=== PATIENT | female | born 1985 | race Caucasian/White ===

== ENCOUNTER 2016-10-05 10:16 | Emergency (ER) | payer MEDICAID ==
[~2016-10-05 10:16] MED LIST: ALBU17AE23 IH; AZIT-21 PO; CPH500CIP PO; CYCL10TA9 PO; ERYT-99; FAMO20TA42 PO; HYDR-34 PO; HYDR-3583 PO; HYDR-690 PO; HYDR1TAB PO; HYOS0.1283 SL; IBP800T PO; LEVA1.2511; LEVO100T4; LVT.1T; LVT.1T PO; MECL-124 PO; METR250T PO; METR500T21 PO; NAPR-243 PO; PHEN200T27 PO; PRM25T PO; RNT150T PO; TYLENOL; XOPENEX
--- OUTSIDE RECORDS SUMMARY | 2016-10-09 04:52 | XMS REPORT | Continuity of Care Document ---
Author Author [facility] Organization [facility] Address Unknown Phone Unavailable Allergies Active Description Code Type Severity Reaction Onset Reported/Identified Relationship to Patient Clinical Status Yes Penicillins [id number] Drug Allergy Unknown N/A 04/14/2006 Yes Sulfa (Sulfonamide Antibiotics) [id number] Drug Allergy Unknown N/A 04/14/2006 Yes morphine [id number] Drug Allergy Moderate SOA, HIVES 07/27/2011 Medications Problems Date Dx Coded Attending Type Code Diagnosis Diagnosed By 11/29/2006 Ot 704.8 HAIR DISEASES NEC 11/29/2006 Ot 782.1 12/25/2010 Ot 625.9 FEM GENITAL SYMPTOMS NOS 12/25/2010 Ot 788.1 DYSURIA 05/16/2011 Ot 535.50 UNSP GASTRITIS GASTRODUODENITIS W/O ME 05/16/2011 Ot 789.00 ABDOMINAL PAIN, UNSPECIFIED SITE 07/27/2011 Ot 789.09 ABDOMINAL PAIN, OTHER SPECIFIED SITE 07/27/2011 Ot 791.9 ABN URINE FINDINGS NEC 10/07/2011 Ot 535.50 UNSP GASTRITIS GASTRODUODENITIS W/O ME 10/07/2011 Ot 789.06 ABDOMINAL PAIN, EPIGASTRIC 08/20/2012 Ot 530.81 ESOPHAGEAL REFLUX 08/20/2012 Ot 535.50 UNSP GASTRITIS GASTRODUODENITIS W/O ME 08/20/2012 Ot 789.06 ABDOMINAL PAIN, EPIGASTRIC 12/15/2015 SANDRINE IZAGUIRRE, DARIAN Treviño Ot F12.10 CANNABIS ABUSE, UNCOMPLICATED 12/15/2015 SANDRINE IZAGUIRRE, DARIAN Treviño Ot F15.10 OTHER STIMULANT ABUSE, UNCOMPLICATED 12/15/2015 SANDRINE IZAGUIRRE, DARIAN Treviño Ot F22 DELUSIONAL DISORDERS 02/26/2016 Ot 704.8 02/26/2016 Ot 782.1 02/26/2016 Ot 530.81 ESOPHAGEAL REFLUX 02/26/2016 Ot 535.50 UNSP GASTRITIS GASTRODUODENITIS W/O ME 02/26/2016 Ot 789.06 ABDOMINAL PAIN, EPIGASTRIC 03/31/2016 Ot 530.81 ESOPHAGEAL REFLUX 03/31/2016 Ot 535.50 UNSP GASTRITIS GASTRODUODENITIS W/O ME 03/31/2016 Ot 789.06 ABDOMINAL PAIN, EPIGASTRIC 04/05/2016 PATT CHERY MD Ot E16.2 HYPOGLYCEMIA, UNSPECIFIED 04/05/2016 PATT CHERY MD Ot E86.0 DEHYDRATION 04/05/2016 PATT CHERY MD Ot F12.10 CANNABIS ABUSE, UNCOMPLICATED 04/05/2016 PATT CHERY MD Ot F15.10 OTHER STIMULANT ABUSE, UNCOMPLICATED 04/05/2016 PATT CHERY MD Ot F17.210 NICOTINE DEPENDENCE, CIGARETTES, UNCOMPL 04/05/2016 PATT CHERY MD Ot N72 INFLAMMATORY DISEASE OF CERVIX UTERI 04/06/2016 PATT CHERY MD Ot E16.2 HYPOGLYCEMIA, UNSPECIFIED 04/06/2016 PATT CHERY MD Ot E86.0 DEHYDRATION 04/06/2016 PATT CHERY MD Ot F12.10 CANNABIS ABUSE, UNCOMPLICATED 04/06/2016 PATT CHERY MD Ot F15.10 OTHER STIMULANT ABUSE, UNCOMPLICATED 04/06/2016 PATT CHERY MD Ot F17.210 NICOTINE DEPENDENCE, CIGARETTES, UNCOMPL 04/06/2016 PATT CHERY MD Ot N72 INFLAMMATORY DISEASE OF CERVIX UTERI 06/10/2016 PATT CHERY MD Ot F17.210 NICOTINE DEPENDENCE, CIGARETTES, UNCOMPL 06/10/2016 PATT CHERY MD Ot S39.91XA UNSPECIFIED INJURY OF ABDOMEN, INITIAL E 06/10/2016 PATT CHERY MD Ot W10.9XXA FALL (ON) (FROM) UNSPECIFIED STAIRS AND 06/10/2016 PATT CHERY MD Ot Y92.[address] OR NOT APPLICABLE 06/10/2016 PATT CHERY MD Ot Y93.9 ACTIVITY, UNSPECIFIED 06/10/2016 PATT CHERY MD Ot Y99.8 OTHER EXTERNAL CAUSE STATUS 06/10/2016 PATT CHERY MD Ot Z53.21 PROC/TRTMT NOT CRD OUT D/T PT LV BEF SEE 06/10/2016 PATT CHERY MD Ot Z59.0 HOMELESSNESS 06/13/2016 PATT CHERY MD Ot F17.210 NICOTINE DEPENDENCE, CIGARETTES, UNCOMPL 06/13/2016 PATT CHERY MD Ot S39.91XA UNSPECIFIED INJURY OF ABDOMEN, INITIAL E 06/13/2016 PATT CHERY MD Ot W10.9XXA FALL (ON) (FROM) UNSPECIFIED STAIRS AND 06/13/2016 PATT CHERY MD Ot Y92.[address] OR NOT APPLICABLE 06/13/2016 PATT CHERY MD Ot Y93.9 ACTIVITY, UNSPECIFIED 06/13/2016 PATT CHERY MD Ot Y99.8 OTHER EXTERNAL CAUSE STATUS 06/13/2016 PATT CHERY MD Ot Z53.21 PROC/TRTMT NOT CRD OUT D/T PT LV BEF SEE 06/13/2016 PATT CHERY MD Ot Z59.0 HOMELESSNESS 07/15/2016 BRETT DO, TONY K Ot F15.10 OTHER STIMULANT ABUSE, UNCOMPLICATED 07/15/2016 BRETT DO, TONY K Ot F17.210 NICOTINE DEPENDENCE, CIGARETTES, UNCOMPL 07/15/2016 BRETT DO, TONY K Ot F22 DELUSIONAL DISORDERS 07/15/2016 BRETT DO, TONY K Ot R10.84 GENERALIZED ABDOMINAL PAIN 07/15/2016 BRETT , TONY K Ot F15.10 OTHER STIMULANT ABUSE, UNCOMPLICATED 07/15/2016 BRETT DO, TONY K Ot F17.210 NICOTINE DEPENDENCE, CIGARETTES, UNCOMPL 07/15/2016 BRETT DO, TONY K Ot F22 DELUSIONAL DISORDERS 07/15/2016 BRETT DO, TONY K Ot R10.84 GENERALIZED ABDOMINAL PAIN 07/17/2016 BRETT DO, TONY K Ot F15.10 OTHER STIMULANT ABUSE, UNCOMPLICATED 07/17/2016 BRETT DO, TONY K Ot F17.210 NICOTINE DEPENDENCE, CIGARETTES, UNCOMPL 07/17/2016 BRETT DO, TONY K Ot F22 DELUSIONAL DISORDERS 07/17/2016 BRETT DO TONY K Ot R10.84 GENERALIZED ABDOMINAL PAIN Procedures Results Test Result Range Complete urinalysis with reflex to culture - 04/04/16 03:50 Urine color determination YELLOW NRG Urine clarity determination CLEAR NRG Urine pH measurement by test strip 5 5- 9 Specific gravity of urine by test strip 1.030 1.016-1.022 Urine protein assay by test strip, semi-quantitative 1+ NEGATIVE Urine glucose detection by automated test strip NEGATIVE NEGATIVE Erythrocytes detection in urine sediment by light microscopy NEGATIVE NEGATIVE Urine ketones detection by automated test strip 3+ NEGATIVE Urine nitrite detection by test strip NEGATIVE NEGATIVE Urine total bilirubin detection by test strip NEGATIVE NEGATIVE Urine urobilinogen measurement by automated test strip (mass/volume) 1 mg/dL NORMAL Urine leukocyte esterase detection by dipstick NEGATIVE NEGATIVE Automated urine sediment erythrocyte count by microscopy (number/high power field) NONE NRG Automated urine sediment leukocyte count by microscopy (number/high power field ) NONE NRG Bacteria detection in urine sediment by light microscopy TRACE NRG Squamous epithelial cells detection in urine sediment by light microscopy 5-10 NRG Crystals detection in urine sediment by light microscopy NONE NRG Casts detection in urine sediment by light microscopy NONE NRG Mucus detection in urine sediment by light microscopy MODERATE NRG Complete urinalysis with reflex to culture NO NRG Urine drug screening test - 04/04/16 03:50 Urine phencyclidine detection by screening method NEGATIVE NEGATIVE Urine benzodiazepines detection by screening method NEGATIVE NEGATIVE Urine cocaine detection NEGATIVE NEGATIVE Urine amphetamines detection by screening method POSITIVE NEGATIVE Urine methamphetamine detection by screening method POSITIVE NEGATIVE Urine cannabinoids detection by screening method POSITIVE NEGATIVE Urine opiates detection by screening method NEGATIVE NEGATIVE Urine barbiturates detection NEGATIVE NEGATIVE Screening urine tricyclic antidepressants detection NEGATIVE NEGATIVE Urine methadone detection by screening method NEGATIVE NEGATIVE Urine oxycodone detection NEGATIVE NEGATIVE Urine propoxyphene detection NEGATIVE NEGATIVE Urine buprenophrine screen NEGATIVE NEGATIVE Complete blood count (CBC) with automated white blood cell (WBC) differential - 04/04/16 23:01 Blood leukocytes automated count (number/volume) 7.1 10*3/ uL 4.3-11.0 Blood erythrocytes automated count (number/volume) 4.19 10*6 /uL 4.35-5.85 Venous blood hemoglobin measurement (mass/volume) 12.8 g/dL 11.5-16.0 Blood hematocrit (volume fraction) 37 % 35-52 Automated erythrocyte mean corpuscular volume 87 [foz_us] 80-99 Automated erythrocyte mean corpuscular hemoglobin (mass per erythrocyte) 31 pg 25-34 Automated erythrocyte mean corpuscular hemoglobin concentration measurement ( mass/volume) 35 g/dL 32-36 Automated erythrocyte distribution width ratio 13.3 % 10.0-14.5 Automated blood platelet count (count/volume) 368 10*3/uL 130-400 Automated blood platelet mean volume measurement 9.6 [foz_us ] 7.4-10.4 Automated blood neutrophils/100 leukocytes 49 % 42-75 Automated blood lymphocytes/100 leukocytes 36 % 12-44 Blood monocytes/100 leukocytes 11 % 0-12 Automated blood eosinophils/100 leukocytes 3 % 0-10 Automated blood basophils/100 leukocytes 1 % 0-10 Blood neutrophils automated count (number/volume) 3.5 10*3 1.8-7.8 Blood lymphocytes automated count (number/volume) 2.6 10*3 1.0-4.0 Blood monocytes automated count (number/volume) 0.8 10*3 0.0-1.0 Automated eosinophil count 0.2 10*3/uL 0.0-0.3 Automated blood basophil count (count/volume) 0.1 10*3/uL 0.0-0.1 Comprehensive metabolic panel - 04/04/16 23:01 Serum or plasma sodium measurement (moles/volume) 137 mmol/ L 135-145 Serum or plasma potassium measurement (moles/volume) 3.3 mmol/L 3.6-5.0 Serum or plasma chloride measurement (moles/volume) 105 mmol /L 98-107 Carbon dioxide 17 mmol/L 21-32 Serum or plasma anion gap determination (moles/volume) 15 mmol/L 5-14 Serum or plasma urea nitrogen measurement (mass/volume) 17 mg/dL 7-18 Serum or plasma creatinine measurement (mass/volume) 0.72 mg /dL 0.60-1.30 Serum or plasma urea nitrogen/creatinine mass ratio 24 NRG Serum or plasma creatinine measurement with calculation of estimated glomerular filtration rate > NRG Serum or plasma glucose measurement (mass/volume) 82 mg/dL 70-105 Serum or plasma calcium measurement (mass/volume) 9.6 mg/dL 8.5-10.1 Serum or plasma total bilirubin measurement (mass/volume) 0.6 mg/dL 0.1-1.0 Serum or plasma alkaline phosphatase measurement (enzymatic activity/volume) 88 U/L 40-136 Serum or plasma aspartate aminotransferase measurement (enzymatic activity/ volume) 50 U/L 5-34 Serum or plasma alanine aminotransferase measurement (enzymatic activity/volume ) 29 U/L 0-55 Serum or plasma protein measurement (mass/volume) 7.3 g/dL 6.4-8.2 Serum or plasma albumin measurement (mass/volume) 4.2 g/dL 3.2-4.5 Serum or plasma choriogonadotropin ( test) detection - 04/04/16 23:01 Serum or plasma choriogonadotropin ( test) detection NEGATIVE NEGATIVE Capillary blood glucose measurement by glucometer (mass/volume) - 04/05/16 01: 29 Capillary blood glucose measurement by glucometer (mass/volume) 62 mg/dL 70-110 Bacteria identification in genital specimen by aerobe culture - 04/05/16 05:58 Bacteria identification in genital specimen by aerobe culture NORMAL NRG Microscopic examination by wet preparation - 04/05/16 05:58 WET PREP RESULTS NO YEAST OBSERVED, NO TRICHOMONAS OBSERVED NRG Chlamydia trachomatis DNA detection by probe and signal amplification method - 04/05/16 05:58 Chlamydia trachomatis DNA detection by probe and target amplification method Negative Negative Neisseria gonorrhoeae DNA detection by probe and signal amplification method - 04/05/16 05:58 Gonorrhea amp DNA-urine Negative Negative Complete urinalysis with reflex to culture - 07/15/16 01:55 Urine color determination YELLOW NRG Urine clarity determination CLEAR NRG Urine pH measurement by test strip 7 5- 9 Specific gravity of urine by test strip 1.010 1.016-1.022 Urine protein assay by test strip, semi-quantitative NEGATIVE NEGATIVE Urine glucose detection by automated test strip NEGATIVE NEGATIVE Erythrocytes detection in urine sediment by light microscopy NEGATIVE NEGATIVE Urine ketones detection by automated test strip NEGATIVE NEGATIVE Urine nitrite detection by test strip NEGATIVE NEGATIVE Urine total bilirubin detection by test strip NEGATIVE NEGATIVE Urine urobilinogen measurement by automated test strip (mass/volume) NORMAL NORMAL Urine leukocyte esterase detection by dipstick NEGATIVE NEGATIVE Automated urine sediment erythrocyte count by microscopy (number/high power field) NONE NRG Automated urine sediment leukocyte count by microscopy (number/high power field ) NONE NRG Bacteria detection in urine sediment by light microscopy TRACE NRG Squamous epithelial cells detection in urine sediment by light microscopy 5-10 NRG Crystals detection in urine sediment by light microscopy NONE NRG Casts detection in urine sediment by light microscopy NONE NRG Mucus detection in urine sediment by light microscopy NEGATIVE NRG Complete urinalysis with reflex to culture NO NRG Urine drug screening test - 07/15/16 01:55 Urine phencyclidine detection by screening method NEGATIVE NEGATIVE Urine benzodiazepines detection by screening method NEGATIVE NEGATIVE Urine cocaine detection NEGATIVE NEGATIVE Urine amphetamines detection by screening method POSITIVE NEGATIVE Urine methamphetamine detection by screening method POSITIVE NEGATIVE Urine cannabinoids detection by screening method NEGATIVE NEGATIVE Urine opiates detection by screening method NEGATIVE NEGATIVE Urine barbiturates detection NEGATIVE NEGATIVE Screening urine tricyclic antidepressants detection NEGATIVE NEGATIVE Urine methadone detection by screening method NEGATIVE NEGATIVE Urine oxycodone detection NEGATIVE NEGATIVE Urine propoxyphene detection NEGATIVE NEGATIVE Complete blood count (CBC) with automated white blood cell (WBC) differential - 07/15/16 02:12 Blood leukocytes automated count (number/volume) 5.7 10*3/ uL 4.3-11.0 Blood erythrocytes automated count (number/volume) 4.37 10*6 /uL 4.35-5.85 Venous blood hemoglobin measurement (mass/volume) 13.5 g/dL 11.5-16.0 Blood hematocrit (volume fraction) 39 % 35-52 Automated erythrocyte mean corpuscular volume 90 [foz_us] 80-99 Automated erythrocyte mean corpuscular hemoglobin (mass per erythrocyte) 31 pg 25-34 Automated erythrocyte mean corpuscular hemoglobin concentration measurement ( mass/volume) 34 g/dL 32-36 Automated erythrocyte distribution width ratio 13.0 % 10.0-14.5 Automated blood platelet count (count/volume) 374 10*3/uL 130-400 Automated blood platelet mean volume measurement 8.8 [foz_us ] 7.4-10.4 Automated blood neutrophils/100 leukocytes 57 % 42-75 Automated blood lymphocytes/100 leukocytes 34 % 12-44 Blood monocytes/100 leukocytes 7 % 0-12 Automated blood eosinophils/100 leukocytes 2 % 0-10 Automated blood basophils/100 leukocytes 0 % 0-10 Blood neutrophils automated count (number/volume) 3.2 10*3 1.8-7.8 Blood lymphocytes automated count (number/volume) 1.9 10*3 1.0-4.0 Blood monocytes automated count (number/volume) 0.4 10*3 0.0-1.0 Automated eosinophil count 0.1 10*3/uL 0.0-0.3 Automated blood basophil count (count/volume) 0.0 10*3/uL 0.0-0.1 Serum or plasma choriogonadotropin ( test) detection - 07/15/16 02:12 Serum or plasma choriogonadotropin ( test) detection NEGATIVE NEGATIVE Comprehensive metabolic panel - 07/15/16 02:12 Serum or plasma sodium measurement (moles/volume) 138 mmol/ L 135-145 Serum or plasma potassium measurement (moles/volume) 3.5 mmol/L 3.6-5.0 Serum or plasma chloride measurement (moles/volume) 103 mmol /L 98-107 Carbon dioxide 24 mmol/L 21-32 Serum or plasma anion gap determination (moles/volume) 11 mmol/L 5-14 Serum or plasma urea nitrogen measurement (mass/volume) 12 mg/dL 7-18 Serum or plasma creatinine measurement (mass/volume) 0.74 mg /dL 0.60-1.30 Serum or plasma urea nitrogen/creatinine mass ratio 16 NRG Serum or plasma creatinine measurement with calculation of estimated glomerular filtration rate > NRG Serum or plasma glucose measurement (mass/volume) 88 mg/dL 70-105 Serum or plasma calcium measurement (mass/volume) 9.7 mg/dL 8.5-10.1 Serum or plasma total bilirubin measurement (mass/volume) 0.4 mg/dL 0.1-1.0 Serum or plasma alkaline phosphatase measurement (enzymatic activity/volume) 86 U/L 40-136 Serum or plasma aspartate aminotransferase measurement (enzymatic activity/ volume) 21 U/L 5-34 Serum or plasma alanine aminotransferase measurement (enzymatic activity/volume ) 24 U/L 0-55 Serum or plasma protein measurement (mass/volume) 8.0 g/dL 6.4-8.2 Serum or plasma albumin measurement (mass/volume) 4.7 g/dL 3.2-4.5 Magnesium - 07/15/16 02:12 Magnesium 2.4 mg/dL 1.8-2.4 Serum or plasma amylase measurement (enzymatic activity/volume) - 07/15/16 02: 12 Serum or plasma amylase measurement (enzymatic activity/volume) 55 U/L 25-125 Lipase - 07/15/16 02:12 Lipase 7 U/L 8-78 Serum or plasma thyrotropin measurement by detection limit <=0.05 miu/l (units/ volume) - 07/15/16 02:12 Serum or plasma thyrotropin measurement by detection limit <=0.05 miu/l (units/ volume) 0.50 u[iU]/mL 0.35-4.94 Serum or plasma acetaminophen measurement (mass/volume) - 07/15/16 02:12 Serum or plasma acetaminophen measurement (mass/volume) < ug /mL 10-30 Serum or plasma ethanol measurement (mass/volume) - 07/15/16 02:12 Serum or plasma ethanol measurement (mass/volume) < mg/dL <10 Encounters ACCT No. Visit Date/Time Discharge Status Pt. Type Provider Facility Loc./Unit Complaint [id number] 07/15/2016 01:49:00 2015 03:44:00 DIS Emergency TONY WEST DO [facility] ER AMS [id number] 06/10/2016 16:48:00 2015 17:34:00 DIS Emergency PATT CHERY MD [facility] ER FALL;BACK AND STOMACH PAIN [id number] 04/04/2016 23:04:00 2015 06:27:00 DIS Emergency PATT CHERY MD [facility] ER HYPOGLYEMIA [id number] 12/15/2015 15:58:00 2015 19:26:00 DIS Emergency DARIAN DELUCA MD [facility] ER DRUG USE/AMS [id number] 02/25/2016 13:16:00 Document Registration [id number] 12/15/2015 15:58:00 Document Registration [id number] 08/20/2012 10:39:00 Document Registration [id number] 10/07/2011 10:41:00 Document Registration [id number] 07/27/2011 18:44:00 Document Registration [id number] 05/16/2011 11:54:00 Document Registration [id number] 12/25/2010 18:05:00 Document Registration
--- OUTSIDE RECORDS SUMMARY | 2016-10-09 04:53 | XMS REPORT ---
Author Author JESSICA ANAYA Organization [employer] Address Unknown Phone Unavailable Care Team Providers Care Crime Scene Analyst Name Role Phone JESSICA ANAYA CP Unavailable Allergies, Adverse Reactions, Alerts Substance Reaction Event Type Sulfamethoxazole-Trimethoprim Info Not Available Drug Allergy Penicillin V Potassium Info Not Available Drug Allergy Problems Problem Type Condition Code Onset Dates Condition Status Assessment Dental examination Z01.20 Active Problem Other chronic disease of tonsils and adenoids 474.8 Active Medications No Known Medications Procedures Procedure Coding System Code Date INTRAORL-PERIAPICAL 1 FILM 01824 CPT-4 D0220 Apr 20, 2016 BITEWING - SINGLE FILM CPT-4 D0270 Apr 20, 2016 LTD ORAL EVALUATION - PROBLEM FOCUS CPT-4 D0140 Apr 20, 2016 Vital Signs Date/Time: Apr 20, 2016 Blood Pressure Diastolic 64 mmHg Blood Pressure Systolic 105 mmHg Results No Known Results Summary Purpose [employer] Submission
== END 2016-10-05 10:48 | disposition left against medical advice (07) ==
LOC: EDUNIT# 10:16 → ER 10:18
DX: R50.9 Fever, unspecified (principal); Z53.21 Procedure and treatment not carried out due to patient leaving prior to being seen by health care provider

== ENCOUNTER 2017-03-17 23:52 | Emergency (ER) | payer MEDICAID ==
[~2017-03-17] VITALS: Ht 167.6 cm; Wt 68.0 kg
[2017-03-18 00:06] VITALS: BP 132/89
--- NOTE | 2017-03-18 00:25 | ED Psychosocial ---
General Chief Complaint: Psych/Social Disorder Stated Complaint: PSYCH Source: patient Exam Limitations: clinical condition History of Present Illness Time seen by provider: 00:04 Initial Comments Patient has ER by private conveyance with chief complaint of a electronic device in her abdomen/chest on the left side working its way up her chest towards her heart where he may explode or kill her. She is persistent in this belief. She says it happened shortly after she woke up this afternoon and she is concerned that she needs an ultrasound to reveal to see this device. She states she does not take any medications nor does she have any primary problems. She says she has used controlled substance is but that has not been for a few weeks. She does not smoke or use alcohol. She denies schizophrenia. She has an extensive history at the hospital for neuropsych issues. She is not threatening harm herself or anyone else. She really wants checked is and then she wants us to get out of her. She denies any nausea, shortness of breath, fevers. She is not terribly cooperative with the interview and therefore did not give a very complete review of systems. Allergies and Home Medications Allergies Coded Allergies: morphine (Verified Allergy, Intermediate, SOA, HIVES, 07/27/11) Penicillins (Verified Allergy, Unknown, 04/14/06) Sulfa (Sulfonamide Antibiotics) (Verified Allergy, Unknown, 04/14/06) Home Medications No Active Prescriptions or Reported Meds Constitutional: see HPI (see the history of present illness the patient is unwilling to give much of a review of systems as she is fixated on her chief complaint only.) Past Datsihw-Ycdkpn-Bogsfa Hx Patient Social History Alcohol Use: Denies Use Recreational Drug Use: No Drug of Choice: METH-smokes meth daily Type Used: Cigarettes Recent Foreign Travel: No Contact w/Someone Who Travel: No Recent Hopitalizations: No Immunizations Up To Date Tetanus Booster (TDap): Unknown Date of Influenza Vaccine: May 28, 2016 Seasonal Allergies Seasonal Allergies: No Surgeries History of Surgeries: Yes (D&C; ear tubes) Surgeries: Gallbladder, Tubal Ligation Respiratory History of Respiratory Disorde: Yes Respiratory Disorders: Asthma Cardiovascular History of Cardiac Disorders: No Neurological History of Neurological Disord: No Reproductive System Hx Reproductive Disorders: Yes (D&C X2,X3 MISCARRIAGES) 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 Genitourinary History of Genitourinary Disor: No Gastrointestinal History of Gastrointestinal Di: No Musculoskeletal History of Musculoskeletal Dis: Yes (LOWER BACK PAIN) Endocrine History of Endocrine Disorders: No HEENT History of HEENT Disorders: No Cancer History of Cancer: No Psychosocial History of Psychiatric Problem: Yes Behavioral Health Disorders: Schizophrenia Integumentary History of Skin or Integumenta: No Blood Transfusions History of Blood Disorders: No Family Medical History Significant Family History: No Pertinent Family Hx Physical Exam Vital Signs Vital Sign - Last 12Hours 03/18/17 00:06 Temp 98.7 Pulse 134 Resp 18 B/P (MAP) 132/89 Pulse Ox 98 Capillary Refill : General Appearance: moderate distress, other (anxious and pacing) Gastrointestinal: other (no overt deformity, wounds or palpable mass. Exam is very limited as the patient is very agitated and not willing to succumb to a proper medical exam.) Extremities: normal range of motion (normal gait) Neurologic/Psychiatric: alert, oriented x 3 (oriented to self and place but not situation), other (agitated, pacing, persistent delusion without any other apparent hallucination at this time) Appearance/Memory: denies illness, disheveled, impaired insight Behavior/Eye Contact: avoids eye contact, uncooperative Thoughts/Hallucinations: delusions, obsessive, paranoid Skin: normal color, warm/dry Progress/Results/Core Measures Results/Orders Vital Signs/I&O Vital Sign - Last 12Hours 03/18/17 00:06 Temp 98.7 Pulse 134 Resp 18 B/P (MAP) 132/89 Pulse Ox 98 Progress Note : Time: 00:22 Progress Note Patient has a history of substance abuse as well as schizophrenia and according to police she was in an ambulance on the way to the hospital earlier today but then jumped out of the ambulance and ran away. She is not threatening any harm to anyone or herself and when I offered her an x-ray to look at the object she became enraged thinking that that might set off the device and demanded to get dressed to leave and go somewhere else where there might be a doctor to help her. I offered her sedatives or anxiolytics and she declined. She is very uncooperative with her examination or interrogation so she hasn't consistently evening going AMA. Police are on site and aware presence and situation. Other than her very persistent delusion of feeling something in her chest that may relate to acid reflux or GERD she is remarkably lucid and aware of what going on. She is certainly agitated and not willing to listen to anyone at this time. Her current plan is to go to another hospital and I think this is reasonable that she seek help and she clearly is not trusting us to deliver that medical help tonight. Departure Impression Impression: Primary Impression: Delusions Disposition: AGAINST MEDICAL ADVICE Condition: Against Medical Advice Departure-Patient Inst. Decision time for Depature: 00:33 Referrals: NO,LOCAL PHYSICIAN (PCP/Family) Primary Care Physician Add. Discharge Instructions: Please go to a hospital or doctor of your choice were you can seek appropriate medical care for your problem. All discharge instructions reviewed with patient and/or family. Voiced understanding. Scripts No Active Prescriptions or Reported Meds ISABEL SANDERS Mar 18, 2017 00:25
== END 2017-03-18 00:26 | disposition left against medical advice (07) ==
LOC: EDUNIT# 23:52 → ER 23:55
DX: F22 Delusional disorders (principal); J45.909 Unspecified asthma, uncomplicated; F20.9 Schizophrenia, unspecified; F15.10 Other stimulant abuse, uncomplicated; Z98.51 Tubal ligation status; Z87.59 Personal history of other complications of pregnancy, childbirth and the puerperium
CPT/HCPCS: 99283

== ENCOUNTER 2017-12-26 16:45 | Emergency (ER) | payer MEDICAID ==
[~2017-12-26] VITALS: Ht 167.6 cm; Wt 83.9 kg
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
[2017-12-26 18:30] VITALS: BP 101/72
== END 2017-12-26 18:30 | disposition home or self-care (01) ==
LOC: EDUNIT# 16:45 → ER 16:46
DX: S09.90XA Unspecified injury of head, initial encounter (principal); J45.909 Unspecified asthma, uncomplicated; F20.9 Schizophrenia, unspecified; F15.10 Other stimulant abuse, uncomplicated; Z98.51 Tubal ligation status; Z88.5 Allergy status to narcotic agent; Z88.0 Allergy status to penicillin; Z88.2 Allergy status to sulfonamides; Y04.8XXA Assault by other bodily force, initial encounter
CPT/HCPCS: 70450

== ENCOUNTER 2018-02-13 15:20 | Emergency (ER) | payer MEDICAID ==
[~2018-02-13] VITALS: Ht 167.6 cm; Wt 79.4 kg
[2018-02-13 15:20] VITALS: BP 120/77
--- OUTSIDE RECORDS SUMMARY | 2018-02-13 15:25 | XMS REPORT ---
Author Author TAMMI Atkins Organization [facility] Address [address] [place] [address] Care Team Providers Care Caravan [employer] Camping [employer] Manager Name Role Phone TAMMI Atkins Unavailable PROBLEMS Type Condition ICD9-CM Code [id number]-RF Code Onset Dates Condition Status SNOMED Code Problem Missed period N92.6 Active 06312505 Problem History of hypothyroidism Z86.39 Active 873909223 Problem Dental caries, unspecified K02.9 Active 18203609 Problem Mild intermittent asthma without complication J45.20 Active 963360949 Problem Bipolar disorder, current episode mixed, moderate F31.62 Active 277646793 Problem 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 Active 43458459 Problem Methamphetamine use disorder, mild F15.10 Active 274277370 Problem Severe episode of recurrent major depressive disorder, with psychotic features F33.3 Active 16313689 Problem PTSD (post-traumatic stress disorder) F43.10 Active 27253855 Problem Cocaine use disorder, severe, in sustained remission F14.21 Active 25581596 ALLERGIES Substance Reaction Event Type Date Status Sulfamethoxazole-Trimethoprim Unknown Drug Allergy Jan, Active Penicillin V Potassium Unknown Drug Allergy Jan, Active Morphine Sulfate Unknown Drug Allergy Jan, Active ENCOUNTERS Encounter Location Date Diagnosis [facility] [id number] [address] Jan, Bipolar disorder, current episode mixed, moderate F31.62 ; Cocaine use disorder, severe, in sustained remission F14.21 ; Methamphetamine use disorder, mild F15.10 ; 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 [address] [address] Dec, Missed period N92.6 ; Shortness of breath R06.02 and Lipoma of back D17.1 [facility] [address] [address] Dec, [facility] [place] [address] [address] Dec, Trapezius muscle strain, left, initial encounter S46.812A and Mild intermittent asthma without complication J45.20 [facility] [address] [address] Sep, Bronchitis J40 [facility] [address] [address] Sep, [facility] [address] [id number] Apr, Dental examination Z01.20 [place] [id number] [place] [address] Oct, [place] [address] [address] Oct, [place] [id number] [place] [address] Feb, [place] [address] [address] Oct, [facility] [address] [address] Aug, [place] [address] [address] Jul, [facility] [address] [facility] [id number] [address] Jul, [facility] [address] [facility] [id number] [address] Jun, [facility] [address] [facility] [id number] [address] Mar, 2009 IMMUNIZATIONS No Known Immunizations SOCIAL HISTORY Never Assessed REASON FOR VISIT Establish Care, Has previously been homeless and concerned with exposure to HIV , Hep C, and STD's, Left side tooth pain for months, Concerns with lumps all over body, ABoggsLPN PLAN OF CARE Activity Details Follow Up 6 Months, prn Reason: VITAL SIGNS Height 66.25 in 2017-02-08 Weight 158.1 lbs 2017-02-08 Temperature 98.8 degrees Fahrenheit 2017-02-08 Heart Rate 76 bpm 2017-02-08 Respiratory Rate 18 2017-02-08 BMI 25.32 kg/m2 2017-02-08 Blood pressure systolic 100 mmHg 2017-02-08 Blood pressure diastolic 62 mmHg 2017-02-08 MEDICATIONS Medication Instructions Dosage Frequency Start Date End Date Duration Status Clindamycin HCl 300 MG Orally every 8 hrs 1 capsule 8h Jan,Feb 10 days Active RESULTS Name Result Date Reference Range TSH 2017-02-08 TSH 0.667 0.450-4.500 HEPATITIS PROFILE 2017-02-08 Hep A Ab, IgM Negative Negative HBsAg Screen Negative Negative Hep B Core Ab, IgM Negative Negative Hep C Virus Ab 0.1 0.0-0.9 GC/CHLAM URINE ([facility]) 2017-02-08 CHLAMYDIA GC SYPHILIS ([facility]) 2017-02-08 HIV ([facility]) 2017-02-08 PROCEDURES Procedure Date Ordered Result Body Site No Charge February 08, 2017 LAB NOT BILLED BY [facility] February 08, 2017 VENIPUNCT, ROUTINE* February 08, 2017 INSTRUCTIONS MEDICATIONS ADMINISTERED No Known Medications MEDICAL (GENERAL) HISTORY Type Description Date Medical History asthma Medical History stroke 2013 possibly, was in [place] Surgical History DNC Surgical History tubal ligation Surgical History myringotomy with ventilating tube Surgical History cholecystectomy Hospitalization History Pneumonia Hospitalization History gallstones
--- OUTSIDE RECORDS SUMMARY | 2018-02-13 15:25 | XMS REPORT ---
Author Author NIURKA JEWELL Organization [facility] Address [address] [place] [address] Care Team Providers Care Naval Designer Name Role Phone NIURKA JEWELL Unavailable PROBLEMS Type Condition ICD9-CM Code [id number] Code Onset Dates Condition Status SNOMED Code Problem Missed period N92.6 Active 04234598 Problem History of hypothyroidism Z86.39 Active 429259745 Problem Dental caries, unspecified K02.9 Active 62024455 Problem Mild intermittent asthma without complication J45.20 Active 186836356 Problem Bipolar disorder, current episode mixed, moderate F31.62 Active 356395781 Problem 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 Active 69497861 Problem Methamphetamine use disorder, 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 Active 120870637 Problem Severe episode of recurrent major depressive disorder, with psychotic features F33.3 Active 80850460 Problem PTSD (post-traumatic stress disorder) F43.10 Active 05925002 Problem Cocaine use disorder, severe, in sustained remission F14.21 Active 44150456 ALLERGIES Substance Reaction Event Type Date Status Sulfamethoxazole-Trimethoprim Unknown Drug Allergy Dec, Active Penicillin V Potassium Unknown Drug Allergy Dec, Active SOCIAL HISTORY Never Assessed PLAN OF CARE Activity Details Follow Up prn Reason: VITAL SIGNS Height 66.25 in 2016-12-15 Weight 148.2 lbs 2016-12-15 Temperature 97.8 degrees Fahrenheit 2016-12-15 Heart Rate 90 bpm 2016-12-15 Respiratory Rate 20 2016-12-15 Oximetry on room air:97 % 2016-12-15 BMI 23.74 kg/m2 2016-12-15 Blood pressure systolic 118 mmHg 2016-12-15 Blood pressure diastolic 68 mmHg 2016-12-15 MEDICATIONS Medication Instructions Dosage Frequency Start Date End Date Duration Status Ventolin HFA 108 (90 Base) MCG/ACT Inhalation every 4 hrs 2 puffs as needed 4h Dec, 30 days Active Cyclobenzaprine HCl 5 MG Orally Three times a day 1 tablet as needed 8h Dec, Dec, 5 days Active Cetirizine HCl 10 MG Orally Once a day 1 tablet 24h Dec, 30 day (s) Active RESULTS No Results PROCEDURES Procedure Date Ordered Result Body Site NEBULIZER TREATMENT 2016-12-15 N/A MEASURE BLOOD OXYGEN LEVEL December 15, 2016 TORADOL (IM) 60 MG/2ML (UP TO 15 MG) December 15, 2016 NEB/MDI RX INITIAL December 15, 2016 THER/PROPH/DIAG INJ, SC/IM December 15, 2016 IMMUNIZATIONS Vaccine Route Administration Date Status TORADOL (IM) 60 MG/2ML (UP TO 15 MG) IM Intramuscular December 15, 2016 Administered MEDICAL (GENERAL) HISTORY Type Description Date Medical History asthma Medical History stroke 2013 possibly, was in [place] Surgical History DNC Surgical History tubal ligation Surgical History myringotomy with ventilating tube Surgical History cholecystectomy Hospitalization History Pneumonia Hospitalization History gallstones
--- OUTSIDE RECORDS SUMMARY | 2018-02-13 15:25 | XMS REPORT ---
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 Active 21671213 Problem Methamphetamine use disorder, 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 Active 119389103 Problem Severe episode of recurrent major depressive disorder, with psychotic features F33.3 Active 64173609 Problem PTSD (post-traumatic stress disorder) F43.10 Active 49396257 Problem Cocaine use disorder, severe, in sustained remission F14.21 Active 20754291 ALLERGIES No Information SOCIAL HISTORY Never Assessed PLAN OF CARE VITAL SIGNS MEDICATIONS No Known Medications RESULTS No Results PROCEDURES No Known procedures IMMUNIZATIONS No Known Immunizations MEDICAL (GENERAL) HISTORY Type Description Date Medical History asthma Medical History stroke 2013 possibly, was in [place] Surgical History DNC Surgical History tubal ligation Surgical History myringotomy with ventilating tube Surgical History cholecystectomy Hospitalization History Pneumonia Hospitalization History gallstones
--- OUTSIDE RECORDS SUMMARY | 2018-02-13 15:25 | XMS REPORT ---
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 Active 15463200 Problem Methamphetamine use disorder, 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 Active 358359994 Problem Severe episode of recurrent major depressive disorder, with psychotic features F33.3 Active 10834865 Problem PTSD (post-traumatic stress disorder) F43.10 Active 28656727 Problem Cocaine use disorder, severe, in sustained remission F14.21 Active 46426539 ALLERGIES Substance Reaction Event Type Date Status Sulfamethoxazole-Trimethoprim Unknown Drug Allergy Sep, Active Penicillin V Potassium Unknown Drug Allergy Sep, Active SOCIAL HISTORY Never Assessed PLAN OF CARE VITAL SIGNS Height 66.25 in 2016-10-05 Weight 153.8 lbs 2016-10-05 Temperature 98.2 degrees Fahrenheit 2016-10-05 Heart Rate 78 bpm 2016-10-05 Respiratory Rate 20 2016-10-05 BMI 24.63 kg/m2 2016-10-05 Blood pressure systolic 92 mmHg 2016-10-05 Blood pressure diastolic 60 mmHg 2016-10-05 MEDICATIONS Medication Instructions Dosage Frequency Start Date End Date Duration Status Albuterol Sulfate (2.5 MG/3ML) 0.083% Inhalation every 6 hrs 3 ml 6h Sep Active Nebulizer - as directed Sep, Active PredniSONE 20 mg Orally Once a day 2 tablets 24h Sep, Sep, 05 days Active Doxycycline Hyclate 100 mg Orally every 12 hrs 1 capsule 12h Sep, Oct, 10 days Active RESULTS No Results PROCEDURES No Known procedures IMMUNIZATIONS No Known Immunizations MEDICAL (GENERAL) HISTORY Type Description Date Medical History asthma Medical History stroke 2013 possibly, was in [place] Surgical History DNC Surgical History tubal ligation Surgical History myringotomy with ventilating tube Surgical History cholecystectomy Hospitalization History Pneumonia Hospitalization History gallstones
--- OUTSIDE RECORDS SUMMARY | 2018-02-13 15:25 | XMS REPORT ---
Author Author GARFIELD GASCA Organization [facility] Address [address] [place] [address] Care Team Providers Care Database Administrator Name Role Phone ELZAHEIDYGARFIELD Unavailable PROBLEMS Type Condition ICD9-CM Code [id number] Code Onset Dates Condition Status SNOMED Code Problem Missed period N92.6 Active 12599640 Problem History of hypothyroidism Z86.39 Active 740229574 Problem Dental caries, unspecified K02.9 Active 77940933 Problem Mild intermittent asthma without complication J45.20 Active 201723425 Problem Bipolar disorder, current episode mixed, moderate F31.62 Active 218958272 Problem 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
[2018-02-13 15:59] LABS: BASOPHILS % (AUTO) 1 % (0-10); EOSINOPHILS # (AUTO) 0.5 10^3/uL (0.0-0.3); EOSINOPHILS % (AUTO) 6 % (0-10); HEMATOCRIT 35 % (35-52); LYMPHOCYTES # (AUTO) 2.1 X 10^3 (1.0-4.0); LYMPHOCYTES % (AUTO) 26 % (12-44); MEAN CORPUSCULAR HEMOGLOBIN 30 PG (25-34); MEAN CORPUSCULAR HGB CONC 34 G/DL (32-36); MEAN CORPUSCULAR VOLUME 89 FL (80-99); MEAN PLATELET VOLUME 9.2 FL (7.4-10.4); MONOCYTES % (AUTO) 12 % (0-12); NEUTROPHILS # (AUTO) 4.7 X 10^3 (1.8-7.8); NEUTROPHILS % (AUTO) 57 % (42-75); PLATELET COUNT 376 10^3/uL (130-400); RED BLOOD COUNT 3.95 10^6/uL (4.35-5.85); RED CELL DISTRIBUTION WIDTH 13.5 % (10.0-14.5); WHITE BLOOD COUNT 8.3 10^3/uL (4.3-11.0)
[2018-02-13] MEDS ORDERED: ASPIRIN 81 MG CHEW (CHILDREN'S ASA) PO ONE (16:00)
[2018-02-13 16:12] LABS: ALANINE AMINOTRANSFERASE 15 U/L (0-55); ALBUMIN 4.2 GM/DL (3.2-4.5); ALKALINE PHOSPHATASE 76 U/L (40-136); AMYLASE 40 U/L (25-125); BILIRUBIN,TOTAL 0.5 MG/DL (0.1-1.0); BUN/CREATININE RATIO 20; CALCIUM 9.6 MG/DL (8.5-10.1); CARBON DIOXIDE 25 MMOL/L (21-32); CHLORIDE 103 MMOL/L (98-107); CREATINE KINASE 155 U/L (29-168); CREATININE SERUM 0.76 MG/DL (0.60-1.30); GFR ESTIMATED > 60; GLUCOSE 80 MG/DL (70-105); LIPASE 6 U/L (8-78); MAGNESIUM 2.1 MG/DL (1.8-2.4); POTASSIUM 3.8 MMOL/L (3.6-5.0); SODIUM 136 MMOL/L (135-145); TOTAL PROTEIN 7.4 GM/DL (6.4-8.2)
[2018-02-13 16:19] LABS: CREATINE KINASE MB 2.7 NG/ML (<6.6); MYOGLOBIN SERUM 35.4 NG/ML (10.0-92.0)
[2018-02-13 16:27] LABS: PROTHROMBIN TIME PATIENT 13.1 SEC (12.2-14.7)
--- NOTE | 2018-02-13 16:28 | ED General ---
General Chief Complaint: General Problems/Pain Stated Complaint: NECK PAIN Nursing Triage Note: ARRIVED VIA EMS TO ROOM 03. COMPLAINS OF EPIGASTRIC PAIN THAT RADIATES TO BACK. ALSO COMPLAINS OF SOA AND ANXIETY. PT STATES SHE HAS BEEN DOING DRUGS BUT IS UNABLE TO TELL ME WHICH DRUGS. Nursing Sepsis Screen: No Definite Risk Source of Information: Patient, EMS Exam Limitations: No Limitations History of Present Illness Date Seen by Provider: Feb 13, 2018 Time Seen by Provider: 15:45 Initial Comments Patient is a 32-year-old female who is brought to the emergency room by [facility] from the [facility] here in [facility] with reports of epigastric chest pain that radiates in her back, shortness of breath, and anxiety. She reports that she is unsure what time the pain started has been going on for about a week. She reports that she has been using "drugs" but it unsure of what kind she's been using. Patient is very angry at the fact that she 's having the answer my questions during my exam, she states that "I already answered these questions for EMS". She also informed me that she is not going to give me a urine sample. Timing/Duration: 1 Week Associated Systoms: Chest Pain, Shortness of Air Allergies and Home Medications Allergies Coded Allergies: morphine (Verified Allergy, Intermediate, SOA, HIVES, 07/27/11) Penicillins (Verified Allergy, Unknown, 04/14/06) Sulfa (Sulfonamide Antibiotics) (Verified Allergy, Unknown, 04/14/06) Home Medications Apixaban 5 Mg Tablet, 10 MG PO BID Prescribed by: RICO DE LEÓN on 02/13/181757 Apixaban 5 Mg Tablet, 5 MG PO BID TAKE 2 TABLETS BID X 7 DAYS, THEN 1 TABLET BID Prescribed by: RICO DE LEÓN on 02/13/181757 Patient Home Medication List Home Medication List Reviewed: Yes Review of Systems Constitutional: see HPI; No chills, No fever Respiratory: see HPI, short of breath Cardiovascular: see HPI, chest pain Psychiatric/Neurological: See HPI, Anxiety All Other Systems Reviewed Negative Unless Noted: Yes Past Tajhqxv-Kdblun-Svlltl Hx Past Med/Social Hx: Reviewed Nursing Past Med/Soc Hx Patient Social History Alcohol Use: Occasionally Uses Recreational Drug Use: Yes (WILL NOT TELL ME WHAT DRUGS) Drug of Choice: METH-smokes meth daily Smoking Status: Current Everyday Smoker Type Used: Cigarettes Recent Foreign Travel: No Contact w/Someone Who Travel: No Recent Infectious Disease Expo: No Recent Hopitalizations: No Immunizations Up To Date Tetanus Booster (TDap): Unknown Date of Influenza Vaccine: May 28, 2016 Seasonal Allergies Seasonal Allergies: No Past Medical History Surgeries: Yes (D&C; ear tubes) Gallbladder, Tubal Ligation Respiratory: Yes Asthma Cardiac: No Neurological: No Reproductive Disorders: Yes (D&C X2,X3 MISCARRIAGES) 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 oz. 79.907381rc; 36.31 BMI Method:Stated General Appearance: No Apparent Distress, WD/WN, Anxious Respiratory: Chest Non Tender, Lungs Clear, Normal Breath Sounds, No Accessory Muscle Use, No Respiratory Distress Cardiovascular: Regular Rate, Rhythm, No Edema, No Gallop, No JVD, No Murmur, Normal Peripheral Pulses Neurologic/Psychiatric: Alert, Oriented x3, Normal Mood/Affect Skin: Normal Color, Warm/Dry Progress/Results/Core Measures Suspected Sepsis Recent Fever Within 48 Hours: No Infection Criteria Present: None New/Unexplained Altered Menta: No Sepsis Screen: No Definite Risk SIRS Temperature:98.0 Pulse: 70 Respiratory Rate: 16 Blood Pressure 120 /77 Mean: 91 Results/Orders Lab Results My Orders Medications Given in ED Vital Signs/I&O Capillary Refill : Less Than 3 Seconds Blood Pressure Mean: 91 Progress Note : Time: 17:21 Progress Note Patient is very tearful after she returned from CT scan. She reports that she is having upper back pain. I informed her that I'll be ordering Toradol for the pain. She then refused medication as nursing staff tried to administer the medication. 1745: Dr. Eisenberg was called at this time discussed the patient's living situation, financial situation, and current CT findings. He recommends calling Dr. Joe and seeing if [facility] could be of assistance. Dr. Joe agreed to see the patient tomorrow. The patient was to be started on Eliquis Dosepak and follow-up with [facility] to be reevaluated and establish care. She states just have the patient call first thing tomorrow morning. 1756: The patient was informed of her plans of care. During my discussion with her she became angry for no apparent reason. She stated that she just wanted to leave the emergency room. She started cursing at myself. I tried to calm the patient down she did not want to stay for discharge. She did agree to take her prescriptions for Eliquis. She signed out AGAINST MEDICAL ADVICE. ECG EKG : EKG Time: 16:38 Rate: 59 Rhythm: Normal Sinus Intervals: Normal ECG Comparisson: Unchanged ECG Impression: Normal Diagnostic Imaging Diagonstic Imaging: Xray, CT Plain Films/CT/US/NM/MRI: chest Comments PT STATUS: REG ER : 1985 PHYSICIAN: RICO DE LEÓN ADMIT DATE: 02/13/18/ER Draft Date of Exam:02/13/18 CT ANGIO CHEST W TECHNIQUE: Multiple contiguous axial images were obtained through the chest after uneventful bolus administration of intravenous contrast. Reconstructed CTA MIP acquisitions were also performed. INDICATION: Posterior upper chest pain, history of asthma. EXAMINATION: CT angiogram chest, 02/13/2018. COMPARISON: None. FINDINGS: There is a focal filling defect noted within a vessel in the anterior aspect of the right middle lobe suspicious for a small focal thrombus linear in nature. No other thrombi noted. The central and proximal segmental pulmonary arteries appear patent. The thoracic aorta is unremarkable. The mediastinal structures are otherwise normal with no adenopathy appreciated. Thyroid gland is heterogeneous in nature and prominent in appearance and could be better characterized sonographically on a nonemergent basis. No pericardial or pleural effusions are seen. The lungs demonstrate areas of linear scarring or atelectasis bilaterally. No acute abnormality in either lung. Visualized upper abdomen is unremarkable other than fatty infiltration of the liver and a small hiatal hernia. No acute osseous abnormality. IMPRESSION: 1. Small focal filling defect within a distal branch of the right anterior middle lobe consistent with a small thrombus. Remaining pulmonary arteries patent. 2. Bibasilar areas of atelectasis and/or scarring with no gross acute abnormality noted within the lungs themselves. 3. Other incidental findings as discussed above. Findings called to the ER physician by Dr. Calvo on 02/13/2018 at 5:30 PM Dictated on workstation # [id number] Dict: 02/13/18 1723 Trans: 02/13/18 1738 GERALDINE [id number] Interpreted by: JT CALVO MD Electronically signed by: NAME: STELLA CHRISTIANSON MED REC#: [id number] PT STATUS: DEP ER : 1985 PHYSICIAN: RICO DE LEÓN ADMIT DATE: 02/13/18/ER Signed Date of Exam: 02/13/18 CHEST 1 VIEW, AP/PA ONLY INDICATION: Shortness of air. Chest pain. COMPARISON: 12/25/2010. FINDINGS: Single frontal view of the chest demonstrates normal heart size and pulmonary vascularity. The lungs are well aerated and clear. No large pleural effusion or pneumothorax is seen. The visualized osseous structures show no acute abnormalities. IMPRESSION: 1. No acute cardiopulmonary process. Dictated by: Dictated on workstation # [id number] Dict: 02/13/18 1631 Trans: 02/14/18 0856 Interpreted by: NHI BACK MD Electronically signed by: NHI BACK MD 02/14/18 0856 Reviewed: Reviewed by Me Departure Impression Primary Impression: Pulmonary embolism Disposition: HOME, SELF-CARE Condition: Stable/Unchanged Departure-Patient Inst. Decision time for Depature: 17:55 Referrals: YUE JOE MD NO,LOCAL PHYSICIAN (PCP) Primary Care Physician Patient Instructions: Pulmonary Embolism (Blood Clot in the Lungs) (DC) Scripts Apixaban (Eliquis) 5 Mg Tablet 5 MG PO BID for 30 Days, #72 TAB TAKE 2 TABLETS BID X 7 DAYS, THEN 1 TABLET BID Prov: RICO DE LEÓN 02/13/18 Apixaban (Eliquis) 5 Mg Tablet 10 MG PO BID for 7 Days, #14 TAB Prov: RICO DE LEÓN 02/13/18 IRCO DE LEÓN Feb 13, 2018 16:27
[2018-02-13] MEDS ORDERED: NS 100 ML (IVPB) BAG IV ONE (17:00)
[2018-02-13] MEDS ORDERED: IOHEXOL 350 MG/ML 150 ML (OMNIPAQUE 350) VIAL IV ONE (17:00)
[2018-02-13] MEDS ORDERED: KETOROLAC 30 MG/ML VIAL IVP STA (17:19)
--- NOTE | 2018-02-13 17:38 | Diagnostic Imaging Report ---
TECHNIQUE: Multiple contiguous axial images were obtained through the chest after uneventful bolus administration of intravenous contrast. Reconstructed CTA MIP acquisitions were also performed. INDICATION: Posterior upper chest pain, history of asthma. EXAMINATION: CT angiogram chest, 02/13/2018. COMPARISON: None. FINDINGS: There is a focal filling defect noted within a vessel in the anterior aspect of the right middle lobe suspicious for a small focal thrombus linear in nature. No other thrombi noted. The central and proximal segmental pulmonary arteries appear patent. The thoracic aorta is unremarkable. The mediastinal structures are otherwise normal with no adenopathy appreciated. Thyroid gland is heterogeneous in nature and prominent in appearance and could be better characterized sonographically on a nonemergent basis. No pericardial or pleural effusions are seen. The lungs demonstrate areas of linear scarring or atelectasis bilaterally. No acute abnormality in either lung. Visualized upper abdomen is unremarkable other than fatty infiltration of the liver and a small hiatal hernia. No acute osseous abnormality. IMPRESSION: 1. Small focal filling defect within a distal branch of the right anterior middle lobe consistent with a small thrombus. Remaining pulmonary arteries patent. 2. Bibasilar areas of atelectasis and/or scarring with no gross acute abnormality noted within the lungs themselves. 3. Other incidental findings as discussed above. Findings called to the ER physician by Dr. Calvo on 02/13/2018 at 5:30 PM Dictated by: Dictated on workstation # [id number]
[2018-02-13] MEDS ORDERED: APIX5TAB PO (17:58)
--- NOTE | 2018-02-14 08:58 | Diagnostic Imaging Report ---
INDICATION: Shortness of air. Chest pain. COMPARISON: 12/25/2010. FINDINGS: Single frontal view of the chest demonstrates normal heart size and pulmonary vascularity. The lungs are well aerated and clear. No large pleural effusion or pneumothorax is seen. The visualized osseous structures show no acute abnormalities. IMPRESSION: 1. No acute cardiopulmonary process. Dictated by: Dictated on workstation # [id number]
== END 2018-02-13 17:56 | disposition home or self-care (01) ==
LOC: EDUNIT# 15:20 → ER 15:21
DX: I26.99 Other pulmonary embolism without acute cor pulmonale (principal); F41.9 Anxiety disorder, unspecified; F15.10 Other stimulant abuse, uncomplicated; F17.210 Nicotine dependence, cigarettes, uncomplicated; J45.909 Unspecified asthma, uncomplicated; F20.9 Schizophrenia, unspecified; Z98.51 Tubal ligation status; Z88.5 Allergy status to narcotic agent; Z88.0 Allergy status to penicillin; Z88.2 Allergy status to sulfonamides
CPT/HCPCS: 36415; 71045; 71275; 80053; 82150; 82550; 82553; 83690; 83735; 83874; 84484; 85025; 85379; 85610; 85730; 93005; 93041

== ENCOUNTER 2018-02-13 23:46 | Emergency (ER) | payer MEDICAID ==
[~2018-02-13] VITALS: Ht 167.6 cm; Wt 79.4 kg
[~2018-02-13 23:46] MED LIST changes: +APIX5TAB PO
[2018-02-13 23:53] VITALS: BP 101/58
--- NOTE | 2018-02-14 00:19 | ED Respiratory ---
General Chief Complaint: Respiratory Problems Stated Complaint: LUNG PROBLEMS Source: patient, EMS, old records (ALL PMH IS FROM OLD CHARTS) Exam Limitations: other (PT EXTREMELY DIFFICULT HISTORIAN, ARGUMENTATIVE AND HOSTILE WITH ALL ASPECTS OF CARE, WITH ATTEMPTS TO OBTAIN HISTORY, ETC. SPEECH IS VERY RAPID AND MUMBLED AND ERRATIC AND CANNOT COMPLETE SENTENCES. ) History of Present Illness Date Seen by Provider: Feb 13, 2018 Time Seen by Provider: 23:45 Initial Comments PT ARRIVES VIA EMS EMS WAS CONTACTED BY [employer]--PT WAS FOUND LAYING BEHIND A BUILDING [facility]. PT WAS SEEN IN THIS ER EARLIER AND WAS DX WITH P.E. --PT WAS AT THE [facility] AT THAT TIME PT WAS VERY UNCOOPERATIVE AND DISRUPTIVE DURING PREVIOUS ER VISIT, AND THIS BEHAVIOR CONTINUES ON ARRIVAL TO ER HERE--FOR NO APPARENT REASON. PT WITH EXTENSIVE DRUG ABUSE HISTORY PT STATES "I THINK IT POPPED" "IT BLEW UP" PT SEEMS TO BELIEVE THAT THE BLOOD CLOT IN HER LUNG HAS "POPPED " AND THINKS SOMETHING HAS "BLOWN UP" AND "EXPLODED" INSIDE PT STATES "SOMETHING'S BLOWN UP INSIDE AND IT'S POPPED AND NOW IT'S INFECTION THROUGHOUT MY BODY AND I'M SUING ALL OF YOU" PT REPEATS THESE THINGS OVER AND OVER THEN PT STATES "I DON'T HAVE A BLOOD CLOT ANYMORE" "IT'S LEAKING OUT IN MY BODY " EXTREMELY DIFFICULTY TO GET PT TO ANSWER ANY DIRECT QUESTIONS, SHE WILL NOT STOP TALKING, RANTING, CURSING, YELLING BUT DID ASK HER IF SHE FELT SHORT OF BREATH AND SHE STATES YES PT WILL NOT ANSWER ANY OTHER DIRECT QUESTIONS NO REVIEW OF PREVIOUS ER CHARTS, PT HAS HAD THIS PARANOID, ERRATIC BEHAVIOR IN THE PAST Allergies and Home Medications Allergies Coded Allergies: morphine (Verified Allergy, Intermediate, SOA, HIVES, 07/27/11) Penicillins (Verified Allergy, Unknown, 04/14/06) Sulfa (Sulfonamide Antibiotics) (Verified Allergy, Unknown, 04/14/06) Home Medications Apixaban 5 Mg Tablet, 10 MG PO BID Prescribed by: RICO DE LEÓN on 02/13/181757 Apixaban 5 Mg Tablet, 5 MG PO BID TAKE 2 TABLETS BID X 7 DAYS, THEN 1 TABLET BID Prescribed by: RICO DE LEÓN on 02/13/181757 Patient Home Medication List Home Medication List Reviewed: Yes Review of Systems Constitutional: see HPI Past Yekyefp-Ugbopu-Mjnlec Hx Patient Social History Alcohol Use: Denies Use Recreational Drug Use: Yes (DAILY METH USE) Drug of Choice: METH-smokes meth daily Smoking Status: Current Everyday Smoker (1/2 PPD) Type Used: Cigarettes (1/2 PPD) Recent Hopitalizations: No Immunizations Up To Date Tetanus Booster (TDap): Unknown Date of Influenza Vaccine: May 28, 2016 Seasonal Allergies Seasonal Allergies: No Past Medical History Surgeries: Yes (D&C; ear tubes) Ear Surgery (D&C; BMT'S), Gallbladder, Tubal Ligation Respiratory: Yes Asthma Cardiac: No Neurological: No Reproductive Disorders: Yes (D&C X2,X3 MISCARRIAGES) 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 oz. 79.266791yy; 36.31 BMI Method:Stated General Appearance: no apparent distress, other (VERY HOSTILE, BELLIGERENT, CURSING--FOR NO APPARENT REASON. SPEECH RAPID AND MUMBLED, TALKS NON-STOP. UNABLE TO COMPLETE SENTENCES. CONSTANT MOVEMENTS, CONSTANT SNIFFING. 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 PT IS VERY PARANOID) Skin: tattoos/piercings (MULTIPLE TATTOOS) Progress/Results/Core Measures Suspected Sepsis SIRS Temperature: Pulse: Respiratory Rate: Laboratory Tests 02/13/18 00:23: White Blood Count 10.2 Blood Pressure / Mean: Laboratory Tests 02/13/18 00:23: Creatinine 0.74, INR Comment 0.9, Platelet Count 367, Total Bilirubin 0.6 Results/Orders Lab Results Laboratory Tests Test 02/13/18 00:23 Range/Units White Blood Count 10.2 4.3-11.0 10^3/uL Red Blood Count 4.13 L 4.35-5.85 10^6/uL Hemoglobin 12.8 11.5-16.0 G/DL Hematocrit 37 35-52 % Mean Corpuscular Volume 89 80-99 FL Mean Corpuscular Hemoglobin 31 25-34 PG Mean Corpuscular Hemoglobin Concent 35 32-36 G/DL Red Cell Distribution Width 13.3 10.0-14.5 % Platelet Count 367 130-400 10^3/uL Mean Platelet Volume 9.3 7.4-10.4 FL Neutrophils (%) (Auto) 61 42-75 % Lymphocytes (%) (Auto) 24 12-44 % Monocytes (%) (Auto) 10 0-12 % Eosinophils (%) (Auto) 5 0-10 % Basophils (%) (Auto) 1 0-10 % Neutrophils # (Auto) 6.2 1.8-7.8 X 10^3 Lymphocytes # (Auto) 2.4 1.0-4.0 X 10^3 Monocytes # (Auto) 1.0 0.0-1.0 X 10^3 Eosinophils # (Auto) 0.5 H 0.0-0.3 10^3/uL Basophils # (Auto) 0.1 0.0-0.1 10^3/uL Prothrombin Time 12.2 12.2-14.7 SEC INR Comment 0.9 0.8-1.4 Activated Partial Thromboplast Time 26 24-35 SEC Sodium Level 137 135-145 MMOL/L Potassium Level 3.6 3.6-5.0 MMOL/L Chloride Level 105 98-107 MMOL/L Carbon Dioxide Level 23 21-32 MMOL/L Anion Gap 9 5-14 MMOL/L Blood Urea Nitrogen 17 7-18 MG/DL Creatinine 0.74 0.60-1.30 MG/DL Estimat Glomerular Filtration Rate > 60 BUN/Creatinine Ratio 23 Glucose Level 91 70-105 MG/DL Calcium Level 9.3 8.5-10.1 MG/DL Magnesium Level 2.1 1.8-2.4 MG/DL Total Bilirubin 0.6 0.1-1.0 MG/DL Aspartate Amino Transf (AST/SGOT) 17 5-34 U/L Alanine Aminotransferase (ALT/SGPT) 18 0-55 U/L Alkaline Phosphatase 71 40-136 U/L Troponin I < 0.30 <0.30 NG/ML Total Protein 7.6 6.4-8.2 GM/DL Albumin 4.3 3.2-4.5 GM/DL Serum Alcohol < 10 <10 MG/DL My Orders Orders - TONY WEST DO Saline Lock/Iv-Start (02/13/18 23:51) Ekg Tracing (02/13/18 23:51) O2 (02/13/18 23:51) Monitor-Rhythm Ecg Trace Only (02/13/18:51) Alcohol (02/13/18 23:51) Cbc With Automated Diff (02/13/18:) Comprehensive Metabolic Panel (02/13/18 23:51) Magnesium (02/13/18 23:51) Protime With Inr (02/13/18:51) Partial Thromboplastin Time (02/13/18 23:51) Troponin I (02/13/18 23:51) Chest 1 View, Ap/Pa Only (02/13/18 23:51) Apixaban Tablet (Eliquis Tablet) (02/14/18 09:00) Methylprednisolone Sod Succ (Solu-Medrol (02/14/18 00:45) Enoxaparin Injection (Lovenox Injection) (02/14/18 00:45) Aspirin Chewable Tablet (Baby Aspirin Ch (02/14/18 00:45) Pantoprazole Injection (Protonix Injecti (02/14/18 00:45) Albuterol/Ipra Inhalation Soln (Duoneb I (02/14/18 00:45) Rt Request For Service (02/14/18 00:40) Svn Small Volume Nebulizer (02/14/18 00:40) Apixaban Tablet (Eliquis Tablet) (02/14/18 00:45) Medications Given in ED Vital Signs/I&O Capillary Refill : Progress Note : Progress Note PT CONTINUED THIS BEHAVIOR THROUGHOUT ER STAY AT 0010, PT RIPPED OFF MONITOR LEADS AND MONITORING EQUIPMENT--PULSE OX, BP CUFF --NO APPARENT REASON. STATING SHE WAS LEAVING. PT REFUSES ANY MEDICATIONS OR TESTS, AND REFUSES TO GIVE URINE SAMPLE. STATES SHE DOESN'T HAVE A BLOOD CLOT ANYMORE AND SHE DOESN'T NEED ANY MEDICATIONS REPEATEDLY URGED BY MYSELF AND NURSING STAFF, THAT SHE NEEDED MEDICATIONS TO TREAT THE BLOOD CLOT IN HER LUNG, AND SHE ADAMANTLY REFUSES. OFFERED PAIN MEDICATIONS, SOLU-MEDROL, NEB TREATMENT, PROTONIX, AND BLOOD THINNERS AND SHE REFUSES ALL--STATES SHE DOESN'T NEED ANY OF THEM AND SHE IS BREATHING JUST FINE. NOW THINKS SHE HAS "INTERNAL INJURIES" --OFFERED TO DO ADDITIONAL TESTS, CT SCAN, ULTRASOUND, ETC. AND PT REFUSES ALL. REASSURED HER THAT CT SCAN DONE EARLIER TODAY DID NOT SHOW ANY FREE FLUID OR BLOOD IN HER CHEST OR ABDOMEN, BUT SHE IS UNWILLING TO BELIEVE THIS, YET REFUSES ANY ADDITIONAL TESTS OR MEDICATIONS PT THEN SIGNED OUT AMA--ALL RISKS WERE EXPLAINED TO PT, AND PT RELATES THAT SHE UNDERSTANDS, THEN REFUSED TO LEAVE THE ER, AND CONTINUED THIS BELLIGERENT BEHAVIOR, AGAIN FOR NO APPARENT REASON [employer] [employer] WERE THEN CONTACTED TO ESCORT PT OUT OF ER O2 SAT 100% HEART RATE IN 60'S BP IN 100'S SYSTOLIC ON PREVIOUS ER VISIT, PT WAS GIVEN RX FOR ELIQUIS, AND ARRANGEMENTS HAD BEEN MADE FOR PT TO FO[facility], AND HAD BEEN DISCUSSED WITH DR. JOE AT THAT TIME. ECG Initial ECG Impression Date: Feb 12, 2018 Initial ECG Impression Time: 00:18 Initial ECG Rate: 70 Initial ECG Rhythm: Normal Sinus Initial ECG Impression: Normal Departure Impression Primary Impression: Pulmonary embolism Additional Impressions: Methamphetamine use Left against medical advice Disposition: 07 AGAINST MEDICAL ADVICE Condition: Against Medical Advice Departure-Patient Inst. Referrals: NO,LOCAL PHYSICIAN (PCP/Family) Primary Care Physician TONY WEST DO Feb 14, 2018 00:19
[2018-02-14 00:38] LABS: BASOPHILS # (AUTO) 0.1 10^3/uL (0.0-0.1); BASOPHILS % (AUTO) 1 % (0-10); EOSINOPHILS # (AUTO) 0.5 10^3/uL (0.0-0.3); EOSINOPHILS % (AUTO) 5 % (0-10); HEMATOCRIT 37 % (35-52); HEMOGLOBIN 12.8 G/DL (11.5-16.0); LYMPHOCYTES # (AUTO) 2.4 X 10^3 (1.0-4.0); LYMPHOCYTES % (AUTO) 24 % (12-44); MEAN CORPUSCULAR HEMOGLOBIN 31 PG (25-34); MEAN CORPUSCULAR HGB CONC 35 G/DL (32-36); MEAN CORPUSCULAR VOLUME 89 FL (80-99); MEAN PLATELET VOLUME 9.3 FL (7.4-10.4); MONOCYTES % (AUTO) 10 % (0-12); NEUTROPHILS # (AUTO) 6.2 X 10^3 (1.8-7.8); NEUTROPHILS % (AUTO) 61 % (42-75); PLATELET COUNT 367 10^3/uL (130-400); RED BLOOD COUNT 4.13 10^6/uL (4.35-5.85); RED CELL DISTRIBUTION WIDTH 13.3 % (10.0-14.5); WHITE BLOOD COUNT 10.2 10^3/uL (4.3-11.0)
[2018-02-14] MEDS ORDERED: methylPREDNISolone 125 MG (Solu-MEDROL) VIAL IVP ONE (00:45)
[2018-02-14] MEDS ORDERED: ENOXAPARIN 80 MG/0.8 ML (LOVENOX) SYR SC ONE (00:45)
[2018-02-14] MEDS ORDERED: RT-ALBUTEROL/IPRATROPIUM 3 ML (DUONEB) VIAL INH ONE (00:45)
[2018-02-14] MEDS ORDERED: APIXABAN 5 MG (ELIQUIS) TABLET ONE (00:45)
[2018-02-14] MEDS ORDERED: ASPIRIN 81 MG CHEW (CHILDREN'S ASA) PO ONE (00:45)
[2018-02-14] MEDS ORDERED: PANTOPRAZOLE 40 MG/10 ML (PROTONIX) VIAL IV ONE (00:45)
[2018-02-14 00:50] LABS: ALANINE AMINOTRANSFERASE 18 U/L (0-55); ALBUMIN 4.3 GM/DL (3.2-4.5); ALKALINE PHOSPHATASE 71 U/L (40-136); BILIRUBIN,TOTAL 0.6 MG/DL (0.1-1.0); BUN/CREATININE RATIO 23; CALCIUM 9.3 MG/DL (8.5-10.1); CARBON DIOXIDE 23 MMOL/L (21-32); CHLORIDE 105 MMOL/L (98-107); CREATININE SERUM 0.74 MG/DL (0.60-1.30); GFR ESTIMATED > 60; GLUCOSE 91 MG/DL (70-105); MAGNESIUM 2.1 MG/DL (1.8-2.4); POTASSIUM 3.6 MMOL/L (3.6-5.0); SODIUM 137 MMOL/L (135-145); TOTAL PROTEIN 7.6 GM/DL (6.4-8.2)
[2018-02-14 00:59] LABS: INR 0.9 (0.8-1.4); PROTHROMBIN TIME PATIENT 12.2 SEC (12.2-14.7)
--- NOTE | 2018-02-14 07:39 | Diagnostic Imaging Report ---
INDICATION: Dyspnea. TECHNIQUE: Portable upright AP view of the chest is obtained with comparison made to study of 02/13/2018. FINDINGS: Heart size and pulmonary vascularity are within normal limits, and the lungs are clear, bilaterally. IMPRESSION: Unremarkable chest. Dictated by: Dictated on workstation # [id number]
[2018-02-14] MEDS ORDERED: APIXABAN 5 MG (ELIQUIS) TABLET PO SCH (09:00)
== END 2018-02-14 01:18 | disposition left against medical advice (07) ==
LOC: EDUNIT# 23:46 → ER 23:47
DX: I26.99 Other pulmonary embolism without acute cor pulmonale (principal); J45.909 Unspecified asthma, uncomplicated; F20.9 Schizophrenia, unspecified; F15.10 Other stimulant abuse, uncomplicated; Z98.51 Tubal ligation status; Z87.59 Personal history of other complications of pregnancy, childbirth and the puerperium; Z88.5 Allergy status to narcotic agent; Z88.0 Allergy status to penicillin; Z88.2 Allergy status to sulfonamides; Z79.01 Long term (current) use of anticoagulants
CPT/HCPCS: 36415; 71045; 80053; 80320; 83735; 84484; 85025; 85610; 85730; 93005; 93041

== ENCOUNTER 2018-09-07 08:22 | Emergency (ER) | payer MEDICAID ==
[~2018-09-07] VITALS: Ht 170.2 cm; Wt 79.4 kg
[~2018-09-07 08:22] MED LIST changes: +METR-145 PO; -METR500T21 PO
[2018-09-07 08:27] VITALS: BP 94/40
--- NOTE | 2018-09-07 09:21 | NUR ---
WARM BLANKET GIVEN BY STUDENTS.
[2018-09-07 09:51] LABS: BASOPHILS % (AUTO) 1 % (0-10); EOSINOPHILS # (AUTO) 0.7 10^3/uL (0.0-0.3); EOSINOPHILS % (AUTO) 12 % (0-10); HEMATOCRIT 42 % (35-52); HEMOGLOBIN 13.7 G/DL (11.5-16.0); LYMPHOCYTES # (AUTO) 1.5 X 10^3 (1.0-4.0); LYMPHOCYTES % (AUTO) 25 % (12-44); MEAN CORPUSCULAR HEMOGLOBIN 30 PG (25-34); MEAN CORPUSCULAR HGB CONC 33 G/DL (32-36); MEAN CORPUSCULAR VOLUME 92 FL (80-99); MEAN PLATELET VOLUME 9.3 FL (7.4-10.4); MONOCYTES # (AUTO) 0.5 X 10^3 (0.0-1.0); MONOCYTES % (AUTO) 8 % (0-12); NEUTROPHILS # (AUTO) 3.3 X 10^3 (1.8-7.8); NEUTROPHILS % (AUTO) 55 % (42-75); PLATELET COUNT 409 10^3/uL (130-400); RED CELL DISTRIBUTION WIDTH 13.3 % (10.0-14.5); WHITE BLOOD COUNT 6.1 10^3/uL (4.3-11.0)
[2018-09-07 09:56] LABS: BILIRUBIN,URINE NEGATIVE (NEGATIVE); CLARITY,URINE CLEAR; COLOR,URINE YELLOW; GLUCOSE, URINE (UA) NEGATIVE (NEGATIVE); KETONES,URINE NEGATIVE (NEGATIVE); LEUKOCYTE ESTERASE ,URINE NEGATIVE (NEGATIVE); NITRITE,URINE NEGATIVE (NEGATIVE); PH,URINE 8 (5-9); PROTEIN,URINE NEGATIVE (NEGATIVE); UROBILINOGEN,URINE NORMAL (NORMAL)
[2018-09-07 10:07] LABS: AMPHETAMINE SCREEN, URINE NEGATIVE (NEGATIVE); BARBITURATE SCREEN URINE NEGATIVE (NEGATIVE); BENZODIAZEPINES SCREEN URINE NEGATIVE (NEGATIVE); CANNABINOID SCREEN, URINE NEGATIVE (NEGATIVE); COCAINE SCREEN URINE NEGATIVE (NEGATIVE); METHADONE STAT NEGATIVE (NEGATIVE); METHAMPHETAMINE SCREEN URINE S NEGATIVE (NEGATIVE); OPIATE SCREEN URINE NEGATIVE (NEGATIVE); OXYCODONE STAT NEGATIVE (NEGATIVE); PROPOXYPHENE STAT NEGATIVE (NEGATIVE); TRICYCLIC ANTIDEPRESSANTS SCRE NEGATIVE (NEGATIVE)
[2018-09-07 10:09] LABS: ALANINE AMINOTRANSFERASE 12 U/L (0-55); ALBUMIN 4.2 GM/DL (3.2-4.5); ALKALINE PHOSPHATASE 71 U/L (40-136); BILIRUBIN,TOTAL 0.3 MG/DL (0.1-1.0); BUN/CREATININE RATIO 14; CALCIUM 9.4 MG/DL (8.5-10.1); CARBON DIOXIDE 27 MMOL/L (21-32); CHLORIDE 103 MMOL/L (98-107); CREATININE SERUM 0.69 MG/DL (0.60-1.30); GFR ESTIMATED > 60; GLUCOSE 79 MG/DL (70-105); POTASSIUM 4.2 MMOL/L (3.6-5.0); SODIUM 138 MMOL/L (135-145); TOTAL PROTEIN 7.4 GM/DL (6.4-8.2)
[2018-09-07 10:14] LABS: BACTERIA,URINE NEGATIVE /HPF
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
--- NOTE | 2018-09-07 10:51 | Diagnostic Imaging Report ---
Indication: Pulmonary embolism Upright portable AP view the chest is obtained with comparison made study of 02/14/2018. FINDINGS: Heart size and pulmonary vascularity are within normal limits, and the lungs are clear, bilaterally. IMPRESSION: Unremarkable chest. Dictated by: Dictated on workstation # [id number]
--- NOTE | 2018-09-07 11:10 | NUR ---
TECH STATES SHE SAW PT WALKING DOWN RADIOLOGY [facility].
== END 2018-09-07 11:28 | disposition home or self-care (01) ==
LOC: EDUNIT# 08:22 → ER 08:23
DX: R07.89 Other chest pain (principal); J45.909 Unspecified asthma, uncomplicated; F20.9 Schizophrenia, unspecified; F15.10 Other stimulant abuse, uncomplicated; F17.210 Nicotine dependence, cigarettes, uncomplicated; Z98.890 Other specified postprocedural states; Z96.22 Myringotomy tube(s) status; Z88.5 Allergy status to narcotic agent; Z98.51 Tubal ligation status; Z87.59 Personal history of other complications of pregnancy, childbirth and the puerperium; Z88.0 Allergy status to penicillin; Z88.2 Allergy status to sulfonamides; Z79.01 Long term (current) use of anticoagulants
CPT/HCPCS: 36415; 71045; 80053; 80306; 80320; 81000; 85025

== ENCOUNTER 2019-01-15 21:12 | Emergency (ER) | payer MEDICAID ==
[~2019-01-15] VITALS: Ht 170.2 cm; Wt 72.6 kg
--- OUTSIDE RECORDS SUMMARY | 2019-01-15 21:17 | XMS REPORT ---
Author Author Migration, Doctor Organization [facility] Address Unknown Phone Unavailable Care Team Providers Care Fig Washer Name Role Phone Migration, Doctor Unavailable Unavailable PROBLEMS Type Condition ICD9-CM Code [id number] Code Onset Dates Condition Status SNOMED Code Problem Mild intermittent asthma without complication J45.20 Active 970012882 Problem Dental caries, unspecified K02.9 Active 74886851 Problem Missed period N92.6 Active 29055362 Problem Methamphetamine use disorder, mild F15.10 Active 411825631 Problem Cocaine use disorder, severe, in sustained remission F14.21 Active 63422173 Problem PTSD (post-traumatic stress disorder) F43.10 Active 56814081 Problem Chronic gingivitis, plaque induced K05.10 Active 41022742 Problem Severe episode of recurrent major depressive disorder, with psychotic features F33.3 Active 66444801 Problem Bronchitis J40 Active 34468338 Problem History of hypothyroidism Z86.39 Active 098288944 Problem 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 Active 11062557 Problem Bipolar disorder, current episode mixed, moderate F31.62 Active 203913311 Problem Seasonal allergies J30.2 Active 956327538 Problem Environmental allergies Z91.09 Active 893379672 ALLERGIES No Information ENCOUNTERS Encounter Location Date Diagnosis [facility] [id number] [id number] May, Dental examination Z01.20 and Caries K02.9 [facility] [address], [place] [address] Apr, SOB (shortness of breath) R06.02 and Side pain R10.9 [facility] [address], [place] [id number] Apr, SOB (shortness of breath) R06.02 and Side pain R10.9 [facility] [id number] [address] Apr, Contusion of left chest wall, initial encounter S20.212A ; Blister (nonthermal) of oral cavity, initial encounter S00.522A and Chronic gingivitis, plaque induced K05.10 [facility] [address], [place] [id number] 16 Apr, 2018 Contusion of left chest wall, initial encounter S20.212A ; Blister (nonthermal) of oral cavity, initial encounter S00.522A and Chronic gingivitis, plaque induced K05.10 [facility] [id number] [place] [address] 09 Apr, 2018 Bronchitis J40 [facility] [address], [place] [id number] Apr, Blister (nonthermal) of oral cavity, initial encounter S00.522A and Chronic gingivitis, plaque induced K05.10 [address] [place] [id number] [place] [address] Mar, Environmental allergies Z91.09 [place] [id number] [place] [address] Jan, Bipolar disorder, current episode mixed, moderate F31.62 ; Cocaine use disorder, severe, in sustained remission F14.21 ; Methamphetamine use disorder, mild F15.10 ; 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 and PTSD (post-traumatic stress disorder) F43.10 [address] [place] [address] Jan, High risk sexual behavior Z72.51 ; Establishing care with new doctor, encounter for Z76.89 ; History of hypothyroidism Z86.39 ; Severe episode of recurrent major depressive disorder, with psychotic features F33.3 and Dental caries, unspecified K02.9 [facility] [id number] [place] [address] Dec, [facility] [id number] [place] [address] 12 Dec, 2016 Missed period N92.6 ; Shortness of breath R06.02 and Lipoma of back D17.1 [address] [address] Dec, [facility] [id number] [place] [address] Dec, Trapezius muscle strain, left, initial encounter S46.812A and Mild intermittent asthma without complication J45.20 [facility] [id number] [place] [address] Sep, Bronchitis J40 [facility] [id number] [place] [address] Sep, [facility] [id number] [place] [id number] Apr, Dental examination Z01.20 [facility] [id number] [place] [address] Oct, [facility] [id number] [place] [address] Oct, [facility] [id number] [place] [address] Feb, [facility] [id number] [place] [address] Oct, [facility] [id number] [place] [address] Aug, [facility] [id number] [place] [address] Jul, [facility] [address] [place] [address] Jul, [facility] [id number] [place] [address] Jun, [facility] [id number] [place] [address] Mar, IMMUNIZATIONS No Known Immunizations SOCIAL HISTORY Never Assessed REASON FOR VISIT EMR-[facility] PLAN OF CARE VITAL SIGNS MEDICATIONS Medication Instructions Dosage Frequency Start Date End Date Duration Status PredniSONE 10 mg Feb, Active Tessalon Perles 100 mg 1 capsule by Oral route 3 times per dayPRN Feb, Active Zithromax Z-Maurice 250 mg Feb, Active RESULTS No Results PROCEDURES No Known procedures INSTRUCTIONS MEDICATIONS ADMINISTERED No Known Medications MEDICAL (GENERAL) HISTORY Type Description Date Medical History asthma Medical History stroke 2013 possibly, was in [place] Surgical History DNC Surgical History tubal ligation Surgical History myringotomy with ventilating tube Surgical History cholecystectomy Hospitalization History Pneumonia Hospitalization History gallstones
--- OUTSIDE RECORDS SUMMARY | 2019-01-15 21:18 | XMS REPORT ---
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
--- OUTSIDE RECORDS SUMMARY | 2019-01-15 21:18 | XMS REPORT ---
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 Active 632127786 Problem PTSD (post-traumatic stress disorder) F43.10 Active 11555175 Problem Cocaine use disorder, severe, in sustained remission F14.21 Active 93331195 Problem Bronchitis J40 Active 83843990 Problem Chronic gingivitis, plaque induced K05.10 Active 42164180 Problem Bipolar disorder, current episode mixed, moderate F31.62 Active 964946882 Problem 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 Active 62623352 Problem Environmental allergies Z91.09 Active 305695767 Problem Seasonal allergies J30.2 Active 887652360 Problem Missed period N92.6 Active 04091993 Problem Dental caries, unspecified K02.9 Active 77790058 Problem History of hypothyroidism Z86.39 Active 710324837 Problem Mild intermittent asthma without complication J45.20 Active 555436679 Problem Severe episode of recurrent major depressive disorder, with psychotic features F33.3 Active 88120155 ALLERGIES Substance Reaction Event Type Date Status Sulfamethoxazole-Trimethoprim Unknown Drug Allergy Apr, Active Penicillin V Potassium Unknown Drug Allergy Apr, Active Morphine Sulfate Unknown Drug Allergy Apr, Active ENCOUNTERS Encounter Location Date Diagnosis [facility] [address] [facility] [id number] [id number] May, [facility] [address] [facility] [id number], [place] [address] Apr, SOB (shortness of breath) R06.02 and Side pain R10.9 [facility] [address] [place] [id number] Apr, SOB (shortness of breath) R06.02 and Side pain R10.9 [place] [address] [place] [address] 17 Apr, 2018 Contusion of left chest wall, initial encounter S20.212A ; Blister (nonthermal) of oral cavity, initial encounter S00.522A and Chronic gingivitis, plaque induced K05.10 [place] [address] [place] [id number] 16 Apr, 2018 Contusion of left chest wall, initial encounter S20.212A ; Blister (nonthermal) of oral cavity, initial encounter S00.522A and Chronic gingivitis, plaque induced K05.10 [place] [address] [address] 09 Apr, 2018 Bronchitis J40 [place] [address] [place] [id number] Apr, Blister (nonthermal) of oral cavity, initial encounter S00.522A and Chronic gingivitis, plaque induced K05.10 [place] [address] [place] [id number] [place] [address] Mar, Environmental allergies Z91.09 [place] [address] [address] Jan, Bipolar disorder, current episode mixed, moderate F31.62 ; Cocaine use disorder, severe, in sustained remission F14.21 ; Methamphetamine use disorder, 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 ; 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 and PTSD (post-traumatic stress disorder) F43.10 [place] [address] [place] [id number] [place] [address] Jan, High risk sexual behavior Z72.51 ; Establishing care with new doctor, encounter for Z76.89 ; History of hypothyroidism Z86.39 ; Severe episode of recurrent major depressive disorder, with psychotic features F33.3 and Dental caries, unspecified K02.9 [facility] [address] [place] [id number] [place] [address] Dec, [facility] [address] [address] Dec, Missed period N92.6 ; Shortness of breath R06.02 and Lipoma of back D17.1 [facility] [address] [place] [id number] [place] [address] Dec, [facility] [address] [id number] [place] [address] Dec, Trapezius muscle strain, left, initial encounter S46.812A and Mild intermittent asthma without complication J45.20 [facility] [address] [place] [id number] [place] [address] Sep, Bronchitis J40 [facility] [address] [address] Sep, [facility] [address] [id number] Apr, Dental examination Z01.20 [facility] [address] [place] [id number] [place] [address] Oct, [facility] [address] [place] [address] [id number] [place] [address] Oct, [facility] [address] [place] [id number] [place] [address] Feb, [facility] [address] [place] [address] [id number] [place] [address] Oct, [facility] [address] [place] [id number] [place] [address] Aug, [facility] [address] [place] [id number] [place] [address] Jul, [facility] [address] [place] [address] [id number] [place] [address] Jul, [facility] [address] [place] [address] [id number] [place] [address] Jun, [facility] [address] [id number] [address] 14 Mar, 2009 IMMUNIZATIONS No Known Immunizations SOCIAL HISTORY Never Assessed REASON FOR VISIT [facility] PLAN OF CARE VITAL SIGNS Height 66.25 in 2018-05-15 Weight 175 lbs 2018-05-15 Heart Rate 64 bpm 2018-05-15 Respiratory Rate 18 2018-05-15 BMI 28.03 kg/m2 2018-05-15 Blood pressure systolic 106 mmHg 2018-05-15 Blood pressure diastolic 66 mmHg 2018-05-15 MEDICATIONS Unknown Medications RESULTS No Results PROCEDURES No Known procedures INSTRUCTIONS MEDICATIONS ADMINISTERED No Known Medications MEDICAL (GENERAL) HISTORY Type Description Date Medical History asthma Medical History stroke 2013 possibly, was in [place] Surgical History DNC Surgical History tubal ligation Surgical History myringotomy with ventilating tube Surgical History cholecystectomy Hospitalization History Pneumonia Hospitalization History gallstones
--- OUTSIDE RECORDS SUMMARY | 2019-01-15 21:18 | XMS REPORT ---
Author Author JESSICA ANAYA [facility] Address Unknown Care Team Providers Care 8Th Grade Teacher Name Role Phone JESSICA ANAYA Unavailable PROBLEMS Type Condition ICD9-CM Code [id number] Code Onset Dates Condition Status SNOMED Code Problem Methamphetamine use disorder, mild F15.10 Active 876547620 Problem PTSD (post-traumatic stress disorder) F43.10 Active 81148279 Problem Cocaine use disorder, severe, in sustained remission F14.21 Active 54238891 Problem Bronchitis J40 Active 44079697 Problem Chronic gingivitis, plaque induced K05.10 Active 79900340 Problem Bipolar disorder, current episode mixed, moderate F31.62 Active 839673797 Problem 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 Active 20239773 Problem Environmental allergies Z91.09 Active 847903769 Problem Seasonal allergies J30.2 Active 737057666 Problem Missed period N92.6 Active 34986448 Problem Dental caries, unspecified K02.9 Active 37374297 Problem History of hypothyroidism Z86.39 Active 883672719 Problem Mild intermittent asthma without complication J45.20 Active 513127524 Problem Severe episode of recurrent major depressive disorder, with psychotic features F33.3 Active 90149936 ALLERGIES Substance Reaction Event Type Date Status Sulfamethoxazole-Trimethoprim Unknown Drug Allergy May, Active Penicillin V Potassium Unknown Drug Allergy May, Active Morphine Sulfate Unknown Drug Allergy May, Active ENCOUNTERS Encounter Location Date Diagnosis [facility] [address] [facility] [id number] [id number] May, Dental examination Z01.[address] [facility] [address] [facility] [id number], [place] [address] Apr, SOB (shortness of breath) R06.02 and Side pain R10.9 [facility] [address] [place] [id number] Apr, SOB (shortness of breath) R06.02 and Side pain R10.9 [facility] [address] [place] [address] 17 Apr, 2018 Contusion of left chest wall, initial encounter S20.212A ; Blister (nonthermal) of oral cavity, initial encounter S00.522A and Chronic gingivitis, plaque induced K05.10 [place] [address] [place] [id number] 16 Apr, 2018 Contusion of left chest wall, initial encounter S20.212A ; Blister (nonthermal) of oral cavity, initial encounter S00.522A and Chronic gingivitis, plaque induced K05.10 [place] [address] [address] 09 Apr, 2018 Bronchitis J40 [place] [address] [place] [id number] Apr, Blister (nonthermal) of oral cavity, initial encounter S00.522A and Chronic gingivitis, plaque induced K05.10 [place] [address] [place] [id number] [place] [address] Mar, Environmental allergies Z91.[address] [address] Jan, Bipolar disorder, current episode mixed, moderate F31.62 ; Cocaine use disorder, severe, in sustained remission F14.21 ; Methamphetamine use disorder, 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 ; 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 and PTSD (post-traumatic stress disorder) F43.10 [place] [address] [place] [id number] [place] [address] Jan, High risk sexual behavior Z72.51 ; Establishing care with new doctor, encounter for Z76.89 ; History of hypothyroidism Z86.39 ; Severe episode of recurrent major depressive disorder, with psychotic features F33.3 and Dental caries, unspecified K02.9 [facility] [id number] [place] [address] Dec, [facility] [address] [place] [address] [address] Dec, Missed period N92.6 ; Shortness of breath R06.02 and Lipoma of back D17.1 [facility] [address] [id number] [place] [address] Dec, [facility] [address] [id number] [place] [address] Dec, Trapezius muscle strain, left, initial encounter S46.812A and Mild intermittent asthma without complication J45.20 [facility] [address] [place] [id number] [place] [address] Sep, Bronchitis J40 [facility] [address] [address] Sep, [facility] [address] [id number] Apr, Dental examination Z01.20 [facility] [address] [place] [id number] [place] [address] Oct, [facility] [address] [place] [id number] [place] [address] Oct, [facility] [address] [place] [address] [id number] [place] [address] Feb, [facility] [address] [place] [address] [id number] [place] [address] Oct, [facility] [address] [place] [address] [id number] [place] [address] Aug, [facility] [address] [place] [address] [id number] [place] [address] Jul, [facility] [address] [place] [address] [id number] [place] [address] Jul, [facility] [address] [place] [address] [id number] [place] [address] Jun, [facility] [address] [place] [id number] [address] 14 Mar, 2009 IMMUNIZATIONS No Known Immunizations SOCIAL HISTORY Never Assessed REASON FOR VISIT MANUEL/twe PLAN OF CARE Activity Details Follow Up prn Reason:adalberto VITAL SIGNS Height 66.25 in 2018-05-31 Blood pressure systolic 136 mmHg 2018-05-31 Blood pressure diastolic 88 mmHg 2018-05-31 MEDICATIONS Medication Instructions Dosage Frequency Start Date End Date Duration Status Benadryl Active RESULTS No Results PROCEDURES Procedure Date Ordered Result Body Site LTD ORAL EVALUATION - PROBLEM FOCUS May 31, 2018 INTRAORL-PERIAPICAL 1 FILM 27658 May 31, 2018 BITEWINGS - TWO FILMS May 31, 2018 INTRAORL-PERIAPICAL EA ADD FILM May 31, 2018 EXTRAC ERUPTED TOOTH/EXPOSED ROOT May 31, 2018 INSTRUCTIONS MEDICATIONS ADMINISTERED No Known Medications MEDICAL (GENERAL) HISTORY Type Description Date Medical History asthma Medical History stroke 2013 possibly, was in [place] Surgical History DNC Surgical History tubal ligation Surgical History myringotomy with ventilating tube Surgical History cholecystectomy Hospitalization History Pneumonia Hospitalization History gallstones
--- OUTSIDE RECORDS SUMMARY | 2019-01-15 21:18 | XMS REPORT ---
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 Active 745301961 Problem PTSD (post-traumatic stress disorder) F43.10 Active 52917626 Problem Cocaine use disorder, severe, in sustained remission F14.21 Active 70992097 Problem Bronchitis J40 Active 29969270 Problem Chronic gingivitis, plaque induced K05.10 Active 35429923 Problem Bipolar disorder, current episode mixed, moderate F31.62 Active 747912911 Problem 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 Active 96348642 Problem Environmental allergies Z91.09 Active 230586321 Problem Seasonal allergies J30.2 Active 665506667 Problem Missed period N92.6 Active 86837189 Problem Dental caries, unspecified K02.9 Active 60062933 Problem History of hypothyroidism Z86.39 Active 977089022 Problem Mild intermittent asthma without complication J45.20 Active 736851078 Problem Severe episode of recurrent major depressive disorder, with psychotic features F33.3 Active 81943619 ALLERGIES No Information ENCOUNTERS Encounter Location Date Diagnosis [facility] [address] [id number] [id number] May, [facility] [address] [place] [address] Apr, SOB (shortness of breath) R06.02 and Side pain R10.9 [facility] [address] [place] [id number] Apr, SOB (shortness of breath) R06.02 and Side pain R10.9 [facility] [address] [id number], [place] [address] Apr, Contusion of left chest wall, initial encounter S20.212A ; Blister (nonthermal) of oral cavity, initial encounter S00.522A and Chronic gingivitis, plaque induced K05.10 [facility] [address] [place] [id number] 16 Apr, 2018 Contusion of left chest wall, initial encounter S20.212A ; Blister (nonthermal) of oral cavity, initial encounter S00.522A and Chronic gingivitis, plaque induced K05.10 [facility] [address] [address] 09 Apr, 2018 Bronchitis J40 [place] [address] [place] [id number] Apr, Blister (nonthermal) of oral cavity, initial encounter S00.522A and Chronic gingivitis, plaque induced K05.10 [place] [address] [place] [id number] [place] [address] Mar, Environmental allergies Z91.09 [place] [address] [address] Jan, Bipolar disorder, current episode mixed, moderate F31.62 ; Cocaine use disorder, severe, in sustained remission F14.21 ; Methamphetamine use disorder, 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 [address] [place] [id number] [place] [address] Dec, [facility] [address] [place] [id number] [place] [address] 12 Dec, 2016 Missed period N92.6 ; Shortness of breath R06.02 and Lipoma of back D17.1 [facility] [address], [place] [address] Dec, [facility] [address] [place] [address] [id number] [place] [address] Dec, Trapezius muscle strain, left, initial encounter S46.812A and Mild intermittent asthma without complication J45.20 [facility] [address] [place] [id number] [place] [address] Sep, Bronchitis J40 [facility] [address] [place] [id number] [place] [address] Sep, [facility] [address] [id number] Apr, Dental examination Z01.20 [facility] [address] [place] [id number] [place] [address] Oct, [facility] [address] [place] [address] [id number] [place] [address] Oct, [facility] [address] [place] [address] [id number] [place] [address] Feb, [facility] [address] [place] [address] [id number] [place] [address] Oct, [facility] [address] [place] [id number] [place] [address] Aug, [facility] [address] [place] [address] [id number] [place] [address] Jul, [facility] [address] [place] [address] [id number] [place] [address] Jul, [facility] [address] [place] [id number] [place] [address] Jun, [facility] [address] [place] [address] 14 Mar, 2009 IMMUNIZATIONS No Known Immunizations SOCIAL HISTORY Never Assessed REASON FOR VISIT Xray (walk-in)-miguel Linton RT (R) RDMS RVT PLAN OF CARE VITAL SIGNS MEDICATIONS Unknown Medications RESULTS Name Result Date Reference Range Xray : Chest 2 View (IN HOUSE) 2018-05-16 PROCEDURES Procedure Date Ordered Result Body Site X-RAY EXAM CHEST 2 VIEWS May 16, 2018 INSTRUCTIONS MEDICATIONS ADMINISTERED No Known Medications MEDICAL (GENERAL) HISTORY Type Description Date Medical History asthma Medical History stroke 2013 possibly, was in [place] Surgical History DNC Surgical History tubal ligation Surgical History myringotomy with ventilating tube Surgical History cholecystectomy Hospitalization History Pneumonia Hospitalization History gallstones
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
[2019-01-15 21:45] LABS: BASOPHILS # (AUTO) 0.1 10^3/uL (0.0-0.1); BASOPHILS % (AUTO) 1 % (0-10); EOSINOPHILS # (AUTO) 0.4 10^3/uL (0.0-0.3); EOSINOPHILS % (AUTO) 5 % (0-10); HEMATOCRIT 34 % (35-52); HEMOGLOBIN 11.8 G/DL (11.5-16.0); LYMPHOCYTES # (AUTO) 2.9 X 10^3 (1.0-4.0); LYMPHOCYTES % (AUTO) 37 % (12-44); MEAN CORPUSCULAR HEMOGLOBIN 30 PG (25-34); MEAN CORPUSCULAR HGB CONC 34 G/DL (32-36); MEAN CORPUSCULAR VOLUME 88 FL (80-99); MEAN PLATELET VOLUME 9.3 FL (7.4-10.4); MONOCYTES # (AUTO) 0.9 X 10^3 (0.0-1.0); MONOCYTES % (AUTO) 11 % (0-12); NEUTROPHILS # (AUTO) 3.7 X 10^3 (1.8-7.8); NEUTROPHILS % (AUTO) 46 % (42-75); PLATELET COUNT 365 10^3/uL (130-400); RED CELL DISTRIBUTION WIDTH 12.9 % (10.0-14.5); WHITE BLOOD COUNT 7.9 10^3/uL (4.3-11.0)
[2019-01-15] MEDS ORDERED: LACTATED RINGERS 1,000 ML IV SCH (22:00)
[2019-01-15 22:03] LABS: ALANINE AMINOTRANSFERASE 16 U/L (0-55); ALBUMIN 4.2 GM/DL (3.2-4.5); ALKALINE PHOSPHATASE 77 U/L (40-136); BILIRUBIN,TOTAL 0.5 MG/DL (0.1-1.0); BUN/CREATININE RATIO 15; CALCIUM 9.5 MG/DL (8.5-10.1); CARBON DIOXIDE 23 MMOL/L (21-32); CHLORIDE 105 MMOL/L (98-107); CREATININE SERUM 0.78 MG/DL (0.60-1.30); GFR ESTIMATED > 60; GLUCOSE 92 MG/DL (70-105); POTASSIUM 3.2 MMOL/L (3.6-5.0); SODIUM 139 MMOL/L (135-145); TOTAL PROTEIN 7.7 GM/DL (6.4-8.2)
[2019-01-15 22:12] LABS: BILIRUBIN,URINE NEGATIVE (NEGATIVE); CLARITY,URINE CLEAR; COLOR,URINE AMBER; GLUCOSE, URINE (UA) NEGATIVE (NEGATIVE); KETONES,URINE NEGATIVE (NEGATIVE); LEUKOCYTE ESTERASE ,URINE 1+ (NEGATIVE); NITRITE,URINE NEGATIVE (NEGATIVE); PH,URINE 6 (5-9); PROTEIN,URINE 1+ (NEGATIVE); UROBILINOGEN,URINE NORMAL (NORMAL)
[2019-01-15] MEDS ORDERED: KCL 20 MEQ TAB (K-DUR) PO ONE (22:15)
[2019-01-15 22:21] LABS: BACTERIA,URINE TRACE /HPF
[2019-01-15 22:22] LABS: SQUAMOUS EPITHELIAL CELL,UR 0-2 /HPF
[2019-01-15 22:30] LABS: AMPHETAMINE SCREEN, URINE POSITIVE (NEGATIVE); BARBITURATE SCREEN URINE NEGATIVE (NEGATIVE); BENZODIAZEPINES SCREEN URINE NEGATIVE (NEGATIVE); CANNABINOID SCREEN, URINE NEGATIVE (NEGATIVE); COCAINE SCREEN URINE NEGATIVE (NEGATIVE); METHADONE STAT NEGATIVE (NEGATIVE); METHAMPHETAMINE SCREEN URINE S POSITIVE (NEGATIVE); OPIATE SCREEN URINE NEGATIVE (NEGATIVE); OXYCODONE STAT NEGATIVE (NEGATIVE); PROPOXYPHENE STAT NEGATIVE (NEGATIVE); TRICYCLIC ANTIDEPRESSANTS SCRE NEGATIVE (NEGATIVE)
[2019-01-15 23:30] VITALS: BP 123/68
--- NOTE | 2019-01-16 06:09 | Diagnostic Imaging Report ---
EXAMINATION: PA and lateral chest at 1009 PM INDICATION: Rib pain There is shallow inspiration when compared to prior exam of 09/07/2018. Allowing for this technical factor, the heart size is within normal limits and the lungs are clear. There is no evidence for contusion or pneumothorax. The mediastinum is not widened. The osseous structures are intact. Specifically, there is no sign of a displaced rib fracture. IMPRESSION: There is no evidence for an acute cardiopulmonary or bony abnormality. Dictated by: Dictated on workstation # [id number]
--- NOTE | 2019-01-16 06:18 | Diagnostic Imaging Report ---
PROCEDURE: CT abdomen and pelvis with contrast. TECHNIQUE: Multiple contiguous axial images were obtained through the abdomen and pelvis after administration of intravenous contrast. Auto Exposure Controls were utilized during the CT exam to meet ALARA standards for radiation dose reduction. INDICATION: Rib pain The previous CT abdomen/pelvis exam of 07/15/2016 failed to show any sign of an acute abnormality. On this study, the lung bases are clear. The bone windows show no evidence for a displaced rib fracture. The liver is homogeneous and not enlarged. As noted on the prior exam the gallbladder is surgically absent. The spleen, pancreas, adrenals, kidneys, aorta and inferior vena cava show no sign of an acute abnormality. The stomach is not well-distended and consequently difficult to assess. There is no pelvic mass or free fluid collection evident. There is a 3.1 x 3.4 CM septated cystic structure in the right adnexa. This is most likely arising from the right ovary. If further evaluation is desired, ultrasound would be recommended. The left ovary and uterus are generally unremarkable. The urinary bladder is not well visualized. The appendix could not be clearly visualized but there are no indirect signs of acute appendicitis. The bone windows show no sign of a fracture or of a destructive lesion. IMPRESSION: 1. There is a septated cystic mass in the right adnexa measuring 3.1 x 3.4 CM. This may well be arising from the right ovary. If further evaluation is desired, then ultrasound would be recommended. 2. There is no acute abnormality of the abdomen or pelvis noted otherwise. 3. There is no evidence for a displaced rib fracture or for an injury to the underlying lungs. Dictated by: Dictated on workstation # [id number]
== END 2019-01-15 23:30 | disposition home or self-care (01) ==
LOC: EDUNIT# 21:12 → ER 21:13
DX: F22 Delusional disorders (principal); F15.10 Other stimulant abuse, uncomplicated; J45.909 Unspecified asthma, uncomplicated; F20.9 Schizophrenia, unspecified; Z88.2 Allergy status to sulfonamides; Z88.0 Allergy status to penicillin; Z88.5 Allergy status to narcotic agent; Z98.51 Tubal ligation status
CPT/HCPCS: 36415; 71046; 74177; 80053; 80306; 81000; 84703; 85025

== ENCOUNTER 2019-05-16 13:46 | Emergency (ER) | payer MEDICAID ==
[~2019-05-16] VITALS: Ht 170 cm; Wt 73.0 kg
[2019-05-16] MEDS ORDERED: KETOROLAC 30 MG/ML VIAL IM STA (14:00)
[2019-05-16] MEDS ORDERED: RT-ALBUTEROL SULF 2.5 MG/3 ML PRE-MIX VIAL INH STA (14:00)
[2019-05-16] MEDS ORDERED: ONDANSETRON 4 MG (ZOFRAN) ORAL DISSOLVE TAB SL STA (14:00)
--- NOTE | 2019-05-16 14:09 | ED Respiratory ---
General Chief Complaint: Respiratory Problems Stated Complaint: SOA Nursing Triage Note: [facility] STATES HAS HX OF ASHTMA, STARTED THIS AM Source: patient Exam Limitations: no limitations History of Present Illness Date Seen by Provider: May 16, 2019 Time Seen by Provider: 13:55 Initial Comments Here with report of short of breath as well as some nausea. Patient is homeless. She did eat lunch about 2 hours ago but has had some nausea since. States that she's had some left shoulder discomfort and was short of breath this morning. She has history of asthma. She states that she does not want an inhaler because it's too cold outside. Denies fevers or chills. Denies diarrhea or dysuria. Timing/Duration: this morning Severity: mild Prior Episodes/Possible Cause: occasional episodes Modifying Factors: Improves With Rest Associated Symptoms: No cough, No fever/chills, No nasal congestion, No nasal drainage; shortness of breath, wheezing Allergies and Home Medications Allergies Coded Allergies: morphine (Verified Allergy, Intermediate, SOA, HIVES, 07/27/11) Penicillins (Verified Allergy, Unknown, 04/14/06) Sulfa (Sulfonamide Antibiotics) (Verified Allergy, Unknown, 04/14/06) Home Medications Apixaban 5 Mg Tablet, 10 MG PO BID Prescribed by: RICO DE LEÓN on 02/13/181757 Apixaban 5 Mg Tablet, 5 MG PO BID TAKE 2 TABLETS BID X 7 DAYS, THEN 1 TABLET BID Prescribed by: RICO DE LEÓN on 02/13/181757 Patient Home Medication List Home Medication List Reviewed: Yes Review of Systems Review of Systems Constitutional: see HPI; No chills, No fever EENTM: no symptoms reported Respiratory: see HPI Cardiovascular: no symptoms reported Gastrointestinal: No diarrhea; nausea; No vomiting Genitourinary: no symptoms reported Musculoskeletal: joint pain; No muscle pain Skin: no symptoms reported All Other Systems Reviewed Negative Unless Noted: Yes Past Thpwyab-Hpfdcr-Lxqbly Hx Past Med/Social Hx: Reviewed Nursing Past Med/Soc Hx Patient Social History Alcohol Use: Denies Use Recreational Drug Use: Yes Drug of Choice: METH Smoking Status: Current Everyday Smoker Type Used: Cigarettes Recent Foreign Travel: No Contact w/Someone Who Travel: No Recent Infectious Disease Expo: No Recent Hopitalizations: No Physical Abuse: No Sexual Abuse: No Immunizations Up To Date Tetanus Booster (TDap): Unknown Date of Influenza Vaccine: May 28, 2016 Seasonal Allergies Seasonal Allergies: No Past Medical History Surgeries: Yes (D&C; ear tubes) Ear Surgery, Gallbladder, Tubal Ligation Respiratory: Yes Asthma Cardiac: No Neurological: No Last Menstrual Period: Apr 15, 2019 Reproductive Disorders: Yes (D&C X2,X3 MISCARRIAGES) 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 oz. 72.590633du; 25.00 BMI Method:Stated General Appearance: WD/WN, no apparent distress HEENT: PERRL/EOMI, pharynx normal Neck: full range of motion, supple Respiratory: no accessory muscle use, wheezing (trace wheezes that cleared with deep breathing.) Cardiovascular: regular rate, rhythm, no murmur Gastrointestinal: non tender, soft Extremities: non-tender, normal inspection Neurologic/Psychiatric: alert, normal mood/affect, oriented x 3 Skin: normal color, warm/dry Progress/Results/Core Measures Suspected Sepsis Recent Fever Within 48 Hours: No Infection Criteria Present: None New/Unexplained Altered Menta: No Sepsis Screen: No Definite Risk SIRS Temperature: Pulse: 84 Respiratory Rate: 18 Blood Pressure 100 /49 Mean: 66 Results/Orders My Orders Orders - PATT CHERY MD Chest Pa/Lat (2 View) (05/16/19 14:00) Ondansetron Oral Dissolve Tab (Zofran (05/16/19 14:00) Albuterol Pre-Mix Nebs (Rt) (Proventil (05/16/19 14:00) Svn Small Volume Nebulizer (05/16/19 14:00) Ketorolac Injection (Toradol Injection) (05/16/19 14:00) Vital Signs/I&O 05/16/19 05/16/19 13:50 14:26 Temp 36.4 Pulse 84 Resp 18 B/P (MAP) 100/49 (66) Pulse Ox 100 100 O2 Delivery Room Air Capillary Refill : Less Than 3 Seconds Blood Pressure Mean: 66 POS Progress Note : Progress Note Seen and evaluated. Patient receptive to some care. She accepts Zofran oral and breathing treatment as well as chest x-ray. She also excepted Toradol IM. Those were ordered. Monitor patient. 1503: Overall feels better after breathing treatment and Toradol. X-ray shows no acute findings. Nausea resolved. Discharged home with return precautions. Patient verbalize understanding instructions and agreement with plan. Diagnostic Imaging Diagonstic Imaging: Xray Plain Films/CT/US/NM/MRI: chest Comments [facility] POS [place], [place] POS NAME: STELLA CHRISTIANSON MED REC#: [id number] PT STATUS: REG ER : 1985 PHYSICIAN: PATT CHERY MD ADMIT DATE: 05/16/19/ER Draft POSDate of Exam:05/16/19 CHEST PA/LAT (2 VIEW) INDICATION: Shortness of air. Patient has history of asthma. COMPARISON: Exam compared with study of 01/15/2019. FINDINGS: There is no acute infiltrate. The lung volumes are symmetric. There is some expansion of the retrosternal airspace as a chronic finding. Lung volumes are stable from the prior. No airway thickening or bronchiectasis. No pneumothorax or pneumomediastinum. IMPRESSION: Mildly hyperexpanded lungs, stable from prior. No acute abnormality identified. Dictated on workstation # [id number] Dict: 05/16/19 1444 Trans: 05/16/19 1446 [id number] [id number] Interpreted by: DEDE WERNER Electronically signed by: Departure Impression Primary Impression: Bronchitis Additional Impression: Left shoulder pain Qualified Codes: M25.512 - Pain in left shoulder Disposition: 01 HOME, SELF-CARE Condition: Improved Departure-Patient Inst. Decision time for Depature: 15:04 Referrals: NO,LOCAL PHYSICIAN (PCP/Family) Primary Care Physician Patient Instructions: Acute Bronchitis Add. Discharge Instructions: All discharge instructions reviewed with patient and/or family. Voiced understanding. . Plenty of fluids and eat a normal diet. You may take ibuprofen 600 mg every 8 hours as needed for pain. You may take Tylenol/acetaminophen 1000 mg every 8 hours as needed for pain. Follow-up with your Dr. in a few days for recheck. Return for worse pain, fever, breathing problems, weakness or other concerns as needed. PATT CHERY MD May 16, 2019 14:09 POS
--- NOTE | 2019-05-16 14:47 | Diagnostic Imaging Report ---
INDICATION: Shortness of air. Patient has history of asthma. COMPARISON: Exam compared with study of 01/15/2019. FINDINGS: There is no acute infiltrate. The lung volumes are symmetric. There is some expansion of the retrosternal airspace as a chronic finding. Lung volumes are stable from the prior. No airway thickening or bronchiectasis. No pneumothorax or pneumomediastinum. IMPRESSION: Mildly hyperexpanded lungs, stable from prior. No acute abnormality identified. Dictated by: Dictated on workstation # [id number]
[2019-05-16 15:16] VITALS: BP 100/49
== END 2019-05-16 15:16 | disposition home or self-care (01) ==
LOC: EDUNIT# 13:46 → ER 13:49
DX: J40 Bronchitis, not specified as acute or chronic (principal); M25.512 Pain in left shoulder; F20.9 Schizophrenia, unspecified; F91.9 Conduct disorder, unspecified; F17.210 Nicotine dependence, cigarettes, uncomplicated; Z98.51 Tubal ligation status; Z87.09 Personal history of other diseases of the respiratory system; Z88.5 Allergy status to narcotic agent; Z88.0 Allergy status to penicillin; Z88.2 Allergy status to sulfonamides; Z79.01 Long term (current) use of anticoagulants
CPT/HCPCS: 71046; 94640

== ENCOUNTER 2020-01-19 20:56 | Emergency (ER) | payer SELFPAY ==
[~2020-01-19] VITALS: Ht 170 cm; Wt 72.5 kg
--- OUTSIDE RECORDS SUMMARY | 2020-01-19 21:03 | XMS REPORT | Continuity of Care Document ---
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 filtration rate > NRG Serum or plasma glucose measurement (mass/volume) 88 mg/dL 70-105 Serum or plasma calcium measurement (mass/volume) 9.7 mg/dL 8.5-10.1 Serum or plasma total bilirubin measurement (mass/volu me) 0.4 mg/dL 0.1-1.0 Serum or plasma alkaline phosphatase laura surement (enzymatic activity/volume) 86 U/L 40-136 Serum or plasma aspartate aminotransfera se measurement (enzymatic activity/volume) 21 U/L 5-34 Serum or plasma alanine aminotransferase measurement (enzymatic activity/volume) 24 U/L 0-55 Serum or plasma protein measurement (mass/volume) 8.0 g/dL 6.4-8.2 Serum or plasma albumin measurement (mass/volume) 4.7 g/dL 3.2-4.5 Magnesium - 07/15/16 02:12 Magnesium 2.4 mg/dL 1.8-2.4 Serum or plasma amylase measurement (enz ymatic activity/volume) - 07/15/16 02:12 Serum or plasma amylase measurement (enzymatic activit y/volume) 55 U/L 25-125 Lipase - 07/15/16 02:12 Lipase 7 U/L 8-78 Serum or plasma thyrotropin measurement by detection limit <=0.05 miu/l (units/volume) - 07/15/16 02:12 Serum or plasma thyrotropin measurement by detection limit <=0.05 miu/l (units/volume) 0.50 u[iU]/mL 0.35-4.94 Serum or plasma acetaminophen measuremen t (mass/volume) - 07/15/16 02:12 Serum or plasma acetaminophen measurement (mass/volume ) < ug/mL 10-30 Serum or plasma ethanol measurement (mas s/volume) - 07/15/16 02:12 Serum or plasma ethanol measurement (mass/volume) < mg/dL <10 Influenza - 10/18/16 11:59 Influenza NEGATIVE FOR A and B 0.00-0.0 0 CBC With Differential/Platelet - 7 18:42 WBC 6.7 x10E3/uL 3.4-10.8 RBC 4.29 x10E6/uL 3.77-5.28 Hemoglobin 12.7 g/dL 11.1-15.9 Hematocrit 39.3 % 34.0-46.6 MCV 92 fL 79-97 MCH 29.6 pg 26.6-33.0 MCHC 32.3 g/dL 31.5-35.7 RDW 13.5 % 12.3-15.4 Platelets 415 x10E3/uL 150-379 Neutrophils 46 % Lymphs 38 % Monocytes 8 % Eos 7 % Basos 1 % Neutrophils (Absolute) 3.1 x10E3/uL 1.4- 7.0 Lymphs (Absolute) 2.6 x10E3/uL 0.7-3.1 Monocytes(Absolute) 0.5 x10E3/uL 0.1-0.9 Eos (Absolute) 0.5 x10E3/uL 0.0-0.4 Baso (Absolute) 0.0 x10E3/uL 0.0-0.2 Immature Granulocytes 0 % Immature Grans (Abs) 0.0 x10E3/uL 0.0-0. 1 Comp. Metabolic Panel (14) - 12/26/16 18 :42 Glucose, Serum 94 mg/dL 65-99 BUN 12 mg/dL 6-20 Creatinine, Serum 0.61 mg/dL 0.57-1.00 eGFR If NonAfricn Am 120 mL/min/1.73 >59 eGFR If Africn Am 139 mL/min/1.73 >5 9 BUN/Creatinine Ratio 20 9-23 Sodium, Serum 143 mmol/L 134-144 Potassium, Serum 4.0 mmol/L 3.5-5.2 Chloride, Serum 103 mmol/L 96-106 Carbon Dioxide, Total 23 mmol/L 18-29 Calcium, Serum 9.1 mg/dL 8.7-10.2 Protein, Total, Serum 7.2 g/dL 6.0-8.5 Albumin, Serum 4.4 g/dL 3.5-5.5 Globulin, Total 2.8 g/dL 1.5-4.5 A/G Ratio 1.6 1.2-2.2 Bilirubin, Total <0.2 mg/dL 0.0-1.2 Alkaline Phosphatase, S 82 IU/L 39-117 AST (SGOT) 12 IU/L 0-40 ALT (SGPT) 15 IU/L 0-32 Hepatitis Panel (4) - 02/08/17 13:34 HBsAg Screen Negative Negative Hep A Ab, IgM Negative Negative Hep B Core Ab, IgM Negative Negative Hep C Virus Ab 0.1 s/co ratio 0.0-0.9 TSH - 02/08/17 13:34 TSH 0.667 uIU/mL 0.450-4.500 Complete blood count (CBC) with automate d white blood cell (WBC) differential - 02/13/18 00:23 Blood leukocytes automated count (number/volume) 10.2 10*3/uL 4.3-11.0 Blood erythrocytes automated count (number/volume) 4.13 10*6/uL 4.35-5.85 Venous blood hemoglobin measurement (mass/volume) 12.8 g/dL 11.5-16.0 Blood hematocrit (volume fraction) 37 % 35-52 Automated erythrocyte mean corpuscular volume 89 [ foz_us] 80-99 Automated erythrocyte mean corpuscular h emoglobin (mass per erythrocyte) 31 pg 25-34 Automated erythrocyte mean corpuscular h emoglobin concentration measurement (mass/volume) 35 g/dL 32-36 Automated erythrocyte distribution width ratio 13. 3 % 10.0- 14.5 Automated blood platelet count [...] 10*3 1.0-4.0 Blood monocytes automated count (number/volume) 1. 0 10*3 0.0-1.0 Automated eosinophil count 0.5 10*3/uL 0 .0-0.3 Automated blood basophil count (count/volume) 0.1 10*3/uL 0.0-0.1 Comprehensive metabolic panel - 02/13/18 00:23 Serum or plasma sodium measurement (moles/volume) 137 mmol/L 135-145 Serum or plasma potassium measurement (moles/volume) 3.6 mmol/L 3.6-5.0 Serum or plasma chloride measurement (moles/volume) 105 mmol/L 98-107 Carbon dioxide 23 mmol/L 21-32 Serum or plasma anion gap determination (moles/volume) 9 mmol/L 5-14 Serum or plasma urea nitrogen measurement (mass/volume ) 17 mg/dL 7-18 Serum or plasma creatinine measurement (mass/volume) 0.74 mg/dL 0.60-1.30 Serum or plasma urea nitrogen/creatinine mass ratio 23 NRG Serum or plasma creatinine measurement w ith calculation of estimated glomerular filtration rate > NRG Serum or plasma glucose measurement (mass/volume) 91 mg/dL 70-105 Serum or plasma calcium measurement (mass/volume) 9.3 mg/dL 8.5-10.1 Serum or plasma total bilirubin measurement (mass/volu me) 0.6 mg/dL 0.1-1.0 Serum or plasma alkaline phosphatase laura surement (enzymatic activity/volume) 71 U/L 40-136 Serum or plasma aspartate aminotransfera se measurement (enzymatic activity/volume) 17 U/L 5-34 Serum or plasma alanine aminotransferase measurement (enzymatic activity/volume) 18 U/L 0-55 Serum or plasma protein measurement (mass/volume) 7.6 g/dL 6.4-8.2 Serum or plasma albumin measurement (mass/volume) 4.3 g/dL 3.2-4.5 Magnesium - 02/13/18 00:23 Magnesium 2.1 mg/dL 1.8-2.4 Serum or plasma troponin i.cardiac measu rement (mass/volume) - 02/13/18 00:23 Serum or plasma troponin i.cardiac measurement (mass/v olume) < ng/mL <0.30 Serum or plasma ethanol measurement (mas s/volume) - 02/13/18 00:23 Serum or plasma ethanol measurement (mass/volume) < mg/dL <10 PT panel in platelet poor plasma by coag ulation assay - 02/13/18 00:23 Prothrombin time (PT) in platelet poor plasma by coagu lation assay 12.2 s 12.2-14.7 INR in platelet poor plasma or blood by coagulation as say 0.9 0.8-1.4 Activated partial thromboplastin time (a PTT) in platelet poor plasma bycoagulation assay - 02/13/18 00:23 Activated partial thromboplastin time (a PTT) in platelet poor plasma bycoagulation assay 26 s 24-35 Complete blood count (CBC) with automate d white blood cell (WBC) differential - 02/13/18 15:28 Blood leukocytes automated count (number/volume) 8.3 10*3/uL 4.3-11.0 Blood erythrocytes automated count (number/volume) 3.95 10*6/uL 4.35-5.85 Venous blood hemoglobin measurement (mass/volume) 12.0 g/dL 11.5-16.0 Blood hematocrit (volume fraction) 35 % 35-52 Automated erythrocyte mean corpuscular volume 89 [ foz_us] 80-99 Automated erythrocyte mean corpuscular h emoglobin (mass per erythrocyte) 30 pg 25-34 Automated erythrocyte mean corpuscular h emoglobin concentration measurement (mass/volume) 34 g/dL 32-36 Automated erythrocyte distribution width ratio 13. 5 % 10.0- 14.5 Automated blood platelet count [...] 10*3 1.0-4.0 Blood monocytes automated count (number/volume) 1. 0 10*3 0.0-1.0 Automated eosinophil count 0.5 10*3/uL 0 .0-0.3 Automated blood basophil count (count/volume) 0.0 10*3/uL 0.0-0.1 Comprehensive metabolic panel - 02/13/18 15:28 Serum or plasma sodium measurement (moles/volume) 136 mmol/L 135-145 Serum or plasma potassium measurement (moles/volume) 3.8 mmol/L 3.6-5.0 Serum or plasma chloride measurement (moles/volume) 103 mmol/L 98-107 Carbon dioxide 25 mmol/L 21-32 Serum or plasma anion gap determination (moles/volume) 8 mmol/L 5-14 Serum or plasma urea nitrogen measurement (mass/volume ) 15 mg/dL 7-18 Serum or plasma creatinine measurement (mass/volume) 0.76 mg/dL 0.60-1.30 Serum or plasma urea nitrogen/creatinine mass ratio 20 NRG Serum or plasma creatinine measurement w ith calculation of estimated glomerular filtration rate > NRG Serum or plasma glucose measurement (mass/volume) 80 mg/dL 70-105 Serum or plasma calcium measurement (mass/volume) 9.6 mg/dL 8.5-10.1 Serum or plasma total bilirubin measurement (mass/volu me) 0.5 mg/dL 0.1-1.0 Serum or plasma alkaline phosphatase laura surement (enzymatic activity/volume) 76 U/L 40-136 Serum or plasma aspartate aminotransfera se measurement (enzymatic activity/volume) 17 U/L 5-34 Serum or plasma alanine aminotransferase measurement (enzymatic activity/volume) 15 U/L 0-55 Serum or plasma protein measurement (mass/volume) 7.4 g/dL 6.4-8.2 Serum or plasma albumin measurement (mass/volume) 4.2 g/dL 3.2-4.5 Magnesium - 02/13/18 15:28 Magnesium 2.1 mg/dL 1.8-2.4 Serum or plasma creatine kinase measurem ent (enzymatic activity/volume) - 02/13/18 15:28 Serum or plasma creatine kinase measurem ent (enzymatic activity/volume) 155 U/L 29-168 Serum or plasma creatine kinase MB measu rement (enzymatic activity/volume) - 02/13/18 15:28 Serum or plasma creatine kinase MB measu rement (enzymatic activity/volume) 2.7 ng/mL <6.6 Myoglobin, serum - 02/13/18 15:28 Myoglobin, serum 35.4 ng/mL 10.0-92.0 Serum or plasma troponin i.cardiac measu rement (mass/volume) - 02/13/18 15:28 Serum or plasma troponin i.cardiac measurement (mass/v olume) < ng/mL <0.30 Serum or plasma amylase measurement (enz ymatic activity/volume) - 02/13/18 15:28 Serum or plasma amylase measurement (enzymatic activit y/volume) 40 U/L 25-125 Myoglobin, serum - 02/13/18 15:28 Myoglobin, serum 35.4 ng/mL 10.0-92.0 Lipase - 02/13/18 15:28 Lipase 6 U/L 8-78 Serum or plasma amylase measurement (enz ymatic activity/volume) - 02/13/18 15:28 Serum or plasma amylase measurement (enzymatic activit y/volume) 40 U/L 25-125 Lipase - 02/13/18 15:28 Lipase 6 U/L 8-78 PT panel in platelet poor plasma by coag ulation assay - 02/13/18 15:28 Prothrombin time (PT) in platelet poor plasma by coagu lation assay 13.1 s 12.2-14.7 INR in platelet poor plasma or blood by coagulation as say 1.0 0.8-1.4 Activated partial thromboplastin time (a PTT) in platelet poor plasma bycoagulation assay - 02/13/18 15:28 Activated partial thromboplastin time (a PTT) in platelet poor plasma bycoagulation assay 27 s 24-35 Fibrin D-dimer FEU measurement in platel et poor plasma (mass/volume) - 02/13/18 15:28 Fibrin D-dimer FEU measurement in platelet poor plasma (mass/volume) 0.54 ug/mL 0.00-0.49 Urine drug screening test - 09/07/18 09: 34 Urine phencyclidine detection by screening method NEGATIVE NEGATIVE Urine benzodiazepines detection by screening method NEGATIVE NEGATIVE Urine cocaine detection NEGATIVE NEGATI VE Urine amphetamines detection by screening method N EGATIVE NEGATIVE Urine methamphetamine detection by screening method NEGATIVE NEGATIVE Urine cannabinoids detection by screening method N EGATIVE NEGATIVE Urine opiates detection by screening method NEGATI VE NEGATIVE Urine barbiturates detection NEGATIVE N EGATIVE Screening urine tricyclic antidepressants detection NEGATIVE NEGATIVE Urine methadone detection by screening method NEGA TIVE NEGATIVE Urine oxycodone detection NEGATIVE NEGA TIVE Urine propoxyphene detection NEGATIVE N EGATIVE Complete urinalysis with reflex to cultu re - 09/07/18 09:34 Urine color determination YELLOW NRG Urine clarity determination CLEAR NR G Urine pH measurement by test strip 8 5-9 Specific gravity of urine by test strip 1.010 1.016-1.022 Urine protein assay by test strip, semi-quantitative NEGATIVE NEGATIVE Urine glucose detection by automated test strip NE GATIVE NEGATIVE Erythrocytes detection in urine sediment by light micr oscopy NEGATIVE NEGATIVE Urine ketones detection by automated test strip NE GATIVE NEGATIVE Urine nitrite detection by test strip NEGATIVE NEGATIVE Urine total bilirubin detection by test strip NEGA TIVE NEGATIVE Urine urobilinogen measurement by automated test strip (mass/volume) NORMAL NORMAL Urine leukocyte esterase detection by dipstick NEG ATIVE NEGATIVE Automated urine sediment erythrocyte cou nt by microscopy (number/high power field) NONE NRG Automated urine sediment leukocyte count by microscopy (number/high power field) NONE NRG Bacteria detection in urine sediment by light microsco py NEGATIVE NRG Squamous epithelial cells detection in u rine sediment by light microscopy 5-10 NRG Crystals detection in urine sediment by light microsco py NONE NRG Casts detection in urine sediment by light microscopy NONE NRG Mucus detection in urine sediment by light microscopy NEGATIVE NRG Complete urinalysis with reflex to culture NO NRG Complete blood count (CBC) with automate d white blood cell (WBC) differential - 09/07/18 09:45 Blood leukocytes automated count (number/volume) 6.1 10*3/uL 4.3-11.0 Blood erythrocytes automated count (number/volume) 4.57 10*6/uL 4.35-5.85 Venous blood hemoglobin measurement (mass/volume) 13.7 g/dL 11.5-16.0 Blood hematocrit (volume fraction) 42 % 35-52 Automated erythrocyte mean corpuscular volume 92 [ foz_us] 80-99 Automated erythrocyte mean corpuscular h emoglobin (mass per erythrocyte) 30 pg 25-34 Automated erythrocyte mean corpuscular h emoglobin concentration measurement (mass/volume) 33 g/dL 32-36 Automated erythrocyte distribution width ratio 13. 3 % 10.0- 14.5 Automated blood platelet count [...] 10*3 1.0-4.0 Blood monocytes automated count (number/volume) 0. 5 10*3 0.0-1.0 Automated eosinophil count 0.7 10*3/uL 0 .0-0.3 Automated blood basophil count (count/volume) 0.0 10*3/uL 0.0-0.1 Comprehensive metabolic panel - 09/07/18 09:45 Serum or plasma sodium measurement (moles/volume) 138 mmol/L 135-145 Serum or plasma potassium measurement (moles/volume) 4.2 mmol/L 3.6-5.0 Serum or plasma chloride measurement (moles/volume) 103 mmol/L 98-107 Carbon dioxide 27 mmol/L 21-32 Serum or plasma anion gap determination (moles/volume) 8 mmol/L 5-14 Serum or plasma urea nitrogen measurement (mass/volume ) 10 mg/dL 7-18 Serum or plasma creatinine measurement (mass/volume) 0.69 mg/dL 0.60-1.30 Serum or plasma urea nitrogen/creatinine mass ratio 14 NRG Serum or plasma creatinine measurement w ith calculation of estimated glomerular filtration rate > NRG Serum or plasma glucose measurement (mass/volume) 79 mg/dL 70-105 Serum or plasma calcium measurement (mass/volume) 9.4 mg/dL 8.5-10.1 Serum or plasma total bilirubin measurement (mass/volu me) 0.3 mg/dL 0.1-1.0 Serum or plasma alkaline phosphatase laura surement (enzymatic activity/volume) 71 U/L 40-136 Serum or plasma aspartate aminotransfera se measurement (enzymatic activity/volume) 15 U/L 5-34 Serum or plasma alanine aminotransferase measurement (enzymatic activity/volume) 12 U/L 0-55 Serum or plasma protein measurement (mass/volume) 7.4 g/dL 6.4-8.2 Serum or plasma albumin measurement (mass/volume) 4.2 g/dL 3.2-4.5 CALCIUM CORRECTED 9.2 mg/dL 8.5-10.1 Serum or plasma ethanol measurement (mas s/volume) - 09/07/18 09:45 Serum or plasma ethanol measurement (mass/volume) < mg/dL <10 Complete blood count (CBC) with automate d white blood cell (WBC) differential - 01/15/19 21:35 Blood leukocytes automated count (number/volume) 7.9 10*3/uL 4.3-11.0 Blood erythrocytes automated count (number/volume) 3.92 10*6/uL 4.35-5.85 Venous blood hemoglobin measurement (mass/volume) 11.8 g/dL 11.5-16.0 Blood hematocrit (volume fraction) 34 % 35-52 Automated erythrocyte mean corpuscular volume 88 [ foz_us] 80-99 Automated erythrocyte mean corpuscular h emoglobin (mass per erythrocyte) 30 pg 25-34 Automated erythrocyte mean corpuscular h emoglobin concentration measurement (mass/volume) 34 g/dL 32-36 Automated erythrocyte distribution width ratio 12. 9 % 10.0- 14.5 Automated blood platelet count (count/volume) 365 10*3/uL 130-400 Automated blood platelet mean volume measurement 9.3 [foz_us] 7.4-10.4 Automated blood neutrophils/100 leukocytes 46 % 42-75 Automated blood lymphocytes/100 leukocytes 37 % 12-44 Blood monocytes/100 leukocytes 11 % 0-12 Automated blood eosinophils/100 leukocytes 5 % 0-10 Automated blood basophils/100 leukocytes 1 % 0-10 Blood neutrophils automated count (number/volume) 3.7 10*3 1.8-7.8 Blood lymphocytes automated count (number/volume) 2.9 10*3 1.0-4.0 Blood monocytes automated count (number/volume) 0. 9 10*3 0.0-1.0 Automated eosinophil count 0.4 10*3/uL 0 .0-0.3 Automated blood basophil count (count/volume) 0.1 10*3/uL 0.0-0.1 Serum or plasma choriogonadotropin (preg ninoska test) detection - 01/15/19 21:35 Serum or plasma choriogonadotropin ( test) de tection NEGATIVE NEGATIVE Comprehensive metabolic panel - 01/15/19 21:35 Serum or plasma sodium measurement (moles/volume) 139 mmol/L 135-145 Serum or plasma potassium measurement (moles/volume) 3.2 mmol/L 3.6-5.0 Serum or plasma chloride measurement (moles/volume) 105 mmol/L 98-107 Carbon dioxide 23 mmol/L 21-32 Serum or plasma anion gap determination (moles/volume) 11 mmol/L 5-14 Serum or plasma urea nitrogen measurement (mass/volume ) 12 mg/dL 7-18 Serum or plasma creatinine measurement (mass/volume) 0.78 mg/dL 0.60-1.30 Serum or plasma urea nitrogen/creatinine mass ratio 15 NRG Serum or plasma creatinine measurement w ith calculation of estimated glomerular filtration rate > NRG Serum or plasma glucose measurement (mass/volume) 92 mg/dL 70-105 Serum or plasma calcium measurement (mass/volume) 9.5 mg/dL 8.5-10.1 Serum or plasma total bilirubin measurement (mass/volu me) 0.5 mg/dL 0.1-1.0 Serum or plasma alkaline phosphatase laura surement (enzymatic activity/volume) 77 U/L 40-136 Serum or plasma aspartate aminotransfera se measurement (enzymatic activity/volume) 21 U/L 5-34 Serum or plasma alanine aminotransferase measurement (enzymatic activity/volume) 16 U/L 0-55 Serum or plasma protein measurement (mass/volume) 7.7 g/dL 6.4-8.2 Serum or plasma albumin measurement (mass/volume) 4.2 g/dL 3.2-4.5 CALCIUM CORRECTED 9.3 mg/dL 8.5-10.1 Complete urinalysis with reflex to cultu re - 01/15/19 22:05 Urine color determination DANK NRG Urine clarity determination CLEAR NR G Urine pH measurement by test strip 6 5-9 Specific gravity of urine by test strip 1.025 1.016-1.022 Urine protein assay by test strip, semi-quantitative 1+ NEGATIVE Urine glucose detection by automated test strip NE GATIVE NEGATIVE Erythrocytes detection in urine sediment by light micr oscopy 3+ NEGATIVE Urine ketones detection by automated test strip NE GATIVE NEGATIVE Urine nitrite detection by test strip NEGATIVE NEGATIVE Urine total bilirubin detection by test strip NEGA TIVE NEGATIVE Urine urobilinogen measurement by automated test strip (mass/volume) NORMAL NORMAL Urine leukocyte esterase detection by dipstick 1+ NEGATIVE Automated urine sediment erythrocyte cou nt by microscopy (number/high power field) NONE NRG Automated urine sediment leukocyte count by microscopy (number/high power field) NONE NRG Bacteria detection in urine sediment by light microsco py TRACE NRG Squamous epithelial cells detection in u rine sediment by light microscopy 0-2 NRG Crystals detection in urine sediment by light microsco py NONE NRG Casts detection in urine sediment by light microscopy NONE NRG Mucus detection in urine sediment by light microscopy MODERATE NRG Complete urinalysis with reflex to culture NO NRG Urine drug screening test - 01/15/19 22: 05 Urine phencyclidine detection by screening method NEGATIVE NEGATIVE Urine benzodiazepines detection by screening method NEGATIVE NEGATIVE Urine cocaine detection NEGATIVE NEGATI VE Urine amphetamines detection by screening method P OSITIVE NEGATIVE Urine methamphetamine detection by screening method POSITIVE NEGATIVE Urine cannabinoids detection by screening method N EGATIVE NEGATIVE Urine opiates detection by screening method NEGATI VE NEGATIVE Urine barbiturates detection NEGATIVE N EGATIVE Screening urine tricyclic antidepressants detection NEGATIVE NEGATIVE Urine methadone detection by screening method NEGA TIVE NEGATIVE Urine oxycodone detection NEGATIVE NEGA TIVE Urine propoxyphene detection NEGATIVE N EGATIVE Encounters ACCT No. Visit Date/Time Discharge Status Pt. Type Provider Facility Loc./Unit Complaint [id number] 12/28/2016 08:07:00 Document Registration [id number] 02/17/2017 14:47:00 02/17/2017 15:40: [id number] 10/18/2016 11:33:00 10/18/2016 13:24: 00 DIS Outpatient [facility]rianojemima [facility] ER [id number] 10/05/2018 15:27:34 Document Registration [id number] 05/16/2019 13:49:00 15:16:00 DIS Outpatient PATT CHERY MD [facility] ER SOA [id number] 01/15/2019 21:13:00 23:30:00 DIS Emergency TRAY TRUJILLO APRN [facility] ER RIB PAIN [id number] 09/07/2018 08:23:00 019 11:28:00 DIS Emergency KAYLENE SHEA MD [facility] ER BLOOD CLOT [id number] 02/13/2018 23:47:00 01:18:00 DIS Emergency TONY WEST DO [facility] ER LUNG PROBLEMS [id number] 02/13/2018 15:21:00 018 17:56:00 DIS Emergency RICO DE LEÓN [facility] ER NECK PAIN [id number] 12/26/2017 16:46:00 018 18:30:00 DIS Emergency TRAY TRUJILLO APRN [facility] ER HEAD INJ;ASSAULT [id number] 03/17/2017 23:55:00 017 00:26:00 DIS Emergency ISABEL SANDERS MD [facility] ER PSYCH [id number] 10/05/2016 10:18:00 017 10:48:00 DIS Emergency TRAY TRUJILLO APRN [facility] ER FEVER/ASTHMA COUGH DIAR SHABNAM [id number] 07/15/2016 01:49:00 016 03:44:00 DIS Emergency TONY WEST DO [facility] ER AMS [id number] 06/10/2016 16:48:00 016 17:34:00 DIS Emergency PATT CHERY MD [facility] ER FALL;BACK AND S TOMACH PAIN [id number] 04/04/2016 23:04:00 016 06:27:00 DIS Emergency PATT CHERY MD [facility] ER HYPOGLYEMIA [id number] 12/15/2015 15:58:00 016 19:26:00 DIS Emergency DARIAN DELUCA MD [facility] ER DRUG USE/AMS [id number] 02/25/2016 13:16:00 Document Registration [id number] 12/15/2015 15:58:00 Document Registration [id number] 08/20/2012 10:39:00 Document Registration [id number] 10/07/2011 10:41:00 Document Registration [id number] 07/27/2011 18:44:00 Document Registration [id number] 05/16/2011 11:54:00 Document Registration [id number] 12/25/2010 18:05:00 Document Registration [id number] 02/09/2017 11:07:00 Document Registration
[2020-01-19] MEDS ORDERED: DOXY100T2 PO (21:13)
[2020-01-19] MEDS ORDERED: METR500T PO (21:13)
--- NOTE | 2020-01-19 21:14 | ED Integumentary General ---
General Chief Complaint: Bite-Animal/Human/Insect Stated Complaint: R ARM DOG BITE Source: patient Exam Limitations: no limitations History of Present Illness Date Seen by Provider: Jan 19, 2020 Time Seen by Provider: 21:10 Initial Comments To ER with reports of a dog bite to the right arm that occurred yesterday. She had a friend wrapped this up for her. Tetanus is not up-to-date. She is currently homeless. This was a stray dog. Timing/Duration: just prior to arrival Severity: moderate Location: extremities Possible Cause: no cause identified Associated Symptoms: denies symptoms Allergies and Home Medications Allergies Coded Allergies: morphine (Verified Allergy, Intermediate, SOA, HIVES, 07/27/11) Penicillins (Verified Allergy, Unknown, 04/14/06) Sulfa (Sulfonamide Antibiotics) (Verified Allergy, Unknown, 04/14/06) Home Medications Apixaban 5 Mg Tablet, 10 MG PO BID Prescribed by: RICO DE LEÓN on 02/13/181757 Apixaban 5 Mg Tablet, 5 MG PO BID TAKE 2 TABLETS BID X 7 DAYS, THEN 1 TABLET BID Prescribed by: RICO DE LEÓN on 02/13/181757 Doxycycline Hyclate 100 Mg Tablet, 100 MG PO BID Prescribed by: TRAY TRUJILLO on 01/19/202112 Metronidazole 500 Mg Tablet, 500 MG PO TID Prescribed by: TRAY TRUJILLO on 01/19/202112 Patient Home Medication List Home Medication List Reviewed: Yes Review of Systems Review of Systems Constitutional: see HPI EENTM: see HPI Respiratory: no symptoms reported Cardiovascular: no symptoms reported Genitourinary: no symptoms reported Musculoskeletal: no symptoms reported Skin: see HPI Psychiatric/Neurological: No Symptoms Reported Endocrine: No Symptoms Reported Past Xoutggo-Jilfrp-Euatjs Hx Patient Social History Alcohol Use: Denies Use Recreational Drug Use: Yes Drug of Choice: METH Smoking Status: Current Everyday Smoker Type Used: Cigarettes 2nd Hand Smoke Exposure: Yes Recent Foreign Travel: No Contact w/Someone Who Travel: No Recent Hopitalizations: No Physical Abuse: No Sexual Abuse: No Mistreated: No Fear: No Immunizations Up To Date Tetanus Booster (TDap): Unknown Date of Influenza Vaccine: May 28, 2016 Seasonal Allergies Seasonal Allergies: No Past Medical History Surgeries: Yes (D&C; ear tubes) Ear Surgery, Gallbladder, Tubal Ligation Respiratory: Yes Asthma Cardiac: No Neurological: No Reproductive Disorders: Yes (D&C X2,X3 MISCARRIAGES) HIGH LIGHTER History: Tubal Ligation Genitourinary: No Gastrointestinal: No Musculoskeletal: Yes (LOWER BACK PAIN) Chronic Back Pain Endocrine: No HEENT: No Cancer: No Psychosocial: Yes (DAILY METH USE; BEHAVIOR DISTURBANCE) Schizophrenia Integumentary: No Blood Disorders: No Family Medical History No Pertinent Family Hx Physical Exam Vital Signs Vital Signs - First Documented 01/19/20 21:05 Temp 37.2 Pulse 82 Resp 20 B/P (MAP) 103/61 (75) Pulse Ox 98 O2 Delivery Room Air Capillary Refill : General Appearance: WD/WN, no apparent distress HEENT: PERRL/EOMI, normal ENT inspection Respiratory: no respiratory distress, no accessory muscle use Gastrointestinal: normal bowel sounds Neurologic/Psychiatric: alert, normal mood/affect, oriented x 3 Skin: normal color, warm/dry Skin Problem Character: other (2 cm laceration dorsal aspect of the distal forearm on the right. Single puncture wound to the dorsal aspect of the proximal forearm as well right. No cellulitis) Progress/Results/Core Measures Results/Orders My Orders Orders - TRAY TRUJILLO APRN Forearm, Right, 2 Views (01/19/20 21:06) Doxycycline Hyclate Tablet (Vibramycin T (01/19/20 21:15) Metronidazole Tablet (Flagyl Tablet) (01/19/20 21:15) Dipht,Pertuss(Acell),Tet Adult (Boostrix (01/19/20 21:15) Rabies Immune Globulin/Pf Inj (Hyperrab (01/19/20 21:15) Rabies Vaccine Human Dipl Cell (Rabavert (01/19/20 21:15) Vital Signs/I&O 01/19/20 21:05 Temp 37.2 Pulse 82 Resp 20 B/P (MAP) 103/61 (75) Pulse Ox 98 O2 Delivery Room Air Departure Impression Primary Impression: Dog bite Disposition: 01 HOME, SELF-CARE Condition: Stable Departure-Patient Inst. Decision time for Depature: 21:12 Referrals: NO,LOCAL PHYSICIAN (PCP/Family) Primary Care Physician Patient Instructions: Animal Bites (DC) Add. Discharge Instructions: You should return to the emergency room for any sign of infection such as redness or swelling. Take the antibiotics as directed. Return to the Hospital outpatient Department on 01/21, 01/28, 02/04 for your last 3 injections of rabies vaccine. All discharge instructions reviewed with patient and/or family. Voiced understanding. Scripts Metronidazole (Flagyl) 500 Mg Tablet 500 MG PO TID, #21 TAB Prov: TRAY TRUJILLO APRN 01/19/20 Doxycycline Hyclate (Doxycycline Hyclate) 100 Mg Tablet 100 MG PO BID, #14 TAB 0 Refills Prov: TRAY TRUJILLO APRN 01/19/20 TRAY TRUJILLO APRN Jan 19, 2020 21:14
[2020-01-19] MEDS ORDERED: RABIES VACCINE HUMAN DIPL CELL 1 ML/2.5 UNITS SYR IM ONE (21:15)
[2020-01-19] MEDS ORDERED: TETANUS,DIPTH,PERTUSS P/F (BOOSTRIX) 0.5 ML VIAL IM ONE (21:15)
[2020-01-19] MEDS ORDERED: RABIES IMMUNE GLOBULIN 300 UNIT/ML 5 ML (HyperRAB) IM ONE (21:15)
[2020-01-19] MEDS ORDERED: DOXYCYCLINE 100 MG (VIBRAMYCIN) TABLET PO SCH (21:15)
[2020-01-19] MEDS ORDERED: metroNIDAZOLE 500 MG (FLAGYL) TAB PO ONE (21:15)
[2020-01-19 22:29] VITALS: BP 103/61
--- NOTE | 2020-01-20 07:57 | Diagnostic Imaging Report ---
EXAMINATION: Right forearm radiograph, 2 views. COMPARISON: None. HISTORY: 34-year-old female, dogbite. FINDINGS: There is no identified radiopaque foreign body. There is no identified acute fracture. There is no cortical or aggressive bone destruction. There is material overlying the patient which does limit the exam. IMPRESSION: 1. No identified radiopaque foreign body. 2. No acute osseous abnormality. Dictated by: Dictated on workstation # [id number]
== END 2020-01-19 22:30 | disposition home or self-care (01) ==
LOC: EDUNIT# 20:56 → ER 20:57
DX: S51.831A Puncture wound without foreign body of right forearm, initial encounter (principal); W54.0XXA Bitten by dog, initial encounter; Z23 Encounter for immunization; Z20.3 Contact with and (suspected) exposure to rabies; J45.909 Unspecified asthma, uncomplicated; M54.9 Dorsalgia, unspecified; F20.9 Schizophrenia, unspecified; F17.210 Nicotine dependence, cigarettes, uncomplicated; Z88.5 Allergy status to narcotic agent; Z88.0 Allergy status to penicillin; Z88.2 Allergy status to sulfonamides; Z59.0 Homelessness
CPT/HCPCS: 73090; 90375; 90675; 90715

== ENCOUNTER 2020-01-22 11:24 | Outpatient (RCR) | payer SELFPAY ==
[~2020-01-22 11:24] MED LIST changes: +DOXY100T2 PO; +METR500T PO
[2020-01-22] MEDS ORDERED: RABIES VACCINE HUMAN DIPL CELL 1 ML/2.5 UNITS SYR ONE (12:19)
[2020-01-22] MEDS ORDERED: RABIES VACCINE HUMAN DIPL CELL 1 ML/2.5 UNITS SYR INJ ONE (12:30)
[2020-01-22 13:00] VITALS: BP 98/51
[2020-01-29] MEDS ORDERED: RABIES VACCINE HUMAN DIPL CELL 1 ML/2.5 UNITS SYR INJ ONE (12:30)
[2020-02-05] MEDS ORDERED: RABIES VACCINE HUMAN DIPL CELL 1 ML/2.5 UNITS SYR INJ ONE (12:30)
== END 2020-04-21 | disposition home or self-care (01) ==
LOC: SDC 11:24
PROVIDERS: ATTEND Nurse Practitioner Family
DX: T14.8XXA Other injury of unspecified body region, initial encounter (principal); W54.0XXA Bitten by dog, initial encounter; Z23 Encounter for immunization
CPT/HCPCS: 90471; 90675